=== PATIENT | female | born 1945 | race Caucasian/White ===

== ENCOUNTER 2019-08-26 08:20 | Inpatient (IN) | payer MEDICARE ==
--- NOTE | 2019-08-26 12:29 | PCM.HP.2 ---
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 She has history of atrial flutter, had ablation on 6th and developed slurred speech, left facial droop along with right arm weakness. Also had pulmonary hypertension while in [place], CT angio chest showed no evidence of PE. She had carotid angiogram but they did not do a thrombectomy. She is here for rehab therapy with PT/OT. 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 She denies any fevers, chills , cough, sore throat, shortness of breath, chest pain. No abdominal pain, nausea , vomiting, diarrhea or constipation. She urinating as normal, no dysuria, hematuria, some increase in frequency. She denies any joint pains, though left shoulder has decreased range of motion. No peripheral edema. History of Diabetes , hypothyroidism, Chronic kidney disease stage 3, DVT, Hypertension, Sleep apnea on CPAP. Had dysphagia testing by speech therapy, recommended regular texture with mildly nectar thickened liquids. - Related Data Allergies/Adverse Reactions: Allergies Allergy/AdvReac Type Severity Reaction Status Date / Time No Known Allergies Allergy Verified 10/08/13 11:06 Home Medications: Home Meds Calcium Carbonate/Vitamin D2 [Calcium with Vit D] 1 each PO BID 10/08/13 [ History] Levothyroxine Sodium 50 mcg PO DAILY@0600 10/08/13 [History] Vitamin B Complex 1 each PO DAILY 10/08/13 [History] busPIRone [Buspar] 15 mg PO BID@08,12 10/08/13 [History] metFORMIN HCl [Metformin HCl] 500 mg PO BID 10/08/13 [History] Acetaminophen [Tylenol Extra Strength] 1,000 mg PO TID 02/04/15 [History] Polyethylene Glycol 3350 [MiraLAX] 17 gm PO DAILY PRN 02/04/15 [History] Omeprazole 40 mg PO DAILY@1700 02/05/15 [History] Potassium Chloride [Klor-Con 10] 10 meq PO DAILY 02/05/15 [History] Pravastatin [Pravachol] 40 mg PO BEDTIME 02/05/15 [History] Amoxicillin 2,000 mg PO ASDIRECTED PRN 08/26/19 [History] Carboxymethylcellulose Sodium [Thera Tears] 1 drop EYEBOTH QID 08/26/19 [History ] Diclofenac Sodium [Voltaren 1% Gel] 2 gm TOP QID 08/26/19 [History] Diclofenac Sodium [Voltaren 1% Gel] 4 gm TOP QID 08/26/19 [History] Diltiazem [Dilacor XR] 180 mg PO DAILY 08/26/19 [History] Docusate Sodium 200 mg PO DAILY 08/26/19 [History] Enoxaparin [Lovenox] 90 mg SUBCUT Q12H 08/26/19 [History] Fesoterodine Fumarate [Toviaz] 8 mg PO DAILY 08/26/19 [History] Furosemide [Lasix] 20 mg PO DAILY PRN 08/26/19 [History] Lisinopril [Zestril] 40 mg PO DAILY 08/26/19 [History] Loperamide [Imodium] 2 mg PO Q12H PRN 08/26/19 [History] Magnesium Chloride [Slow-Mag] 2 tab PO DAILY 08/26/19 [History] Metoprolol Succinate [Toprol XL] 200 mg PO DAILY 08/26/19 [History] Multivitamin with Minerals [Multivitamins with Minerals] 1 tab PO DAILY [History] Vortioxetine [Trintellix] 10 mg PO BEDTIME 08/26/19 [History] Warfarin Sliding Scale [Coumadin Sliding Scale] 1 each PO ASDIRECTED 08/26/19 [ History] Warfarin [Coumadin] 5 mg PO MOFR 08/26/19 [History] Warfarin [Coumadin] 7.5 mg PO SUTUWETHSA 08/26/19 [History] cycloSPORINE [Restasis] 1 drop EYEBOTH BID 08/26/19 [History] lamoTRIgine [Lamotrigine] 50 mg PO BEDTIME 08/26/19 [History] Past Medical History Cardiovascular History: Reports: Afib, Blood Clots/VTE/DVT, High Cholesterol, Hypertension Respiratory History: Reports: Sleep Apnea (on CPAP), Other (See Below) ( pulmonary hypertension). 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 Exam - Exam Exam: See Below - Exam General: Alert, Oriented, Cooperative. No: Mild Distress HEENT: PERRLA, Conjunctiva Clear, EOMI, Hearing Intact, Mucosa Moist & [place], Nares Patent, Normal Nasal Septum, Posterior Pharynx Clear. No: TMs Clear ( blocked by cerumen) Neck: Supple, Trachea Midline. No: Lymphadenopathy Lungs: Clear to Auscultation, Normal Respiratory Effort Cardiovascular: Regular Rate, Irregular Rhythm, Systolic Murmur GI/Abdominal Exam: Normal Bowel Sounds, Soft, Non-Tender, No Distention (Female) Exam: Deferred Rectal (Female) Exam: Deferred Extremities: No Pedal Edema Peripheral Pulses: 2+: Radial (L), Radial (R), Posterior Tibial (L), Posterior Tibial (R), Dorsalis Pedis (L), Dorsalis Pedis (R) Skin: Warm, Dry, Intact Neurological: Cranial Nerves Intact, Normal Speech, Focal Deficit (right arm weakness 4/5, left arm 5/5; BLE 5/5) Psychiatric: Normal Affect, Normal Mood - Problem List (1) Status post cerebrovascular accident SNOMED Code(s): 973093546 ICD Code: Z86.73 - PRSNL HX OF TIA (TIA), AND CEREB INFRC W/O RESID DEFICITS Status: Acute Current Visit: Yes Onset Date: ~08/19/19 (2) Anticoagulant long-term use SNOMED Code(s): 458229576 ICD Code: Z79.01 - CORRECTIONS IDENTIFICATION TECHNICIAN (CURRENT) USE OF ANTICOAGULANTS Status: Chronic Current Visit: Yes (3) Atrial fibrillation SNOMED Code(s): 79475531 ICD Code: I48.91 - UNSPECIFIED ATRIAL FIBRILLATION Status: Chronic Current Visit: No (4) Depression SNOMED Code(s): 32986499 ICD Code: F32.9 - MAJOR DEPRESSIVE DISORDER, SINGLE EPISODE, UNSPECIFIED Status: Chronic Current Visit: No (5) Diabetes 1.5, managed as type 2 SNOMED Code(s): 126194394 ICD Code: E13.9 - OTHER SPECIFIED DIABETES MELLITUS WITHOUT COMPLICATIONS Status: Chronic Current Visit: No Problem List Initiated/Reviewed/Updated: Yes Orders Last 24hrs: Active Orders 24 hr Category Date Time Status Patient Status [ADT] Routine ADT 08/26/19 12:08 Ordered Height and Weight [RC] WEEKLY Care 08/26/19 12:08 Ordered Oxygen Therapy [RC] PRN Care 08/26/19 12:08 Ordered Up to Chair [RC] ASDIRECTED Care 08/26/19 12:08 Ordered VTE/DVT Education [RC] Per Unit Routine Care 08/26/19 12:08 Ordered Vital Signs [RC] PER UNIT ROUTINE Care 08/26/19 12:08 Ordered OT Evaluation and Treatment [CONS] Routine Cons 08/26/19 12:08 Ordered PT Evaluation and Treatment [CONS] Routine Cons 08/26/19 12:08 Ordered Consistent Carbohydrate Diet [DIET] Diet 08/26/19 Lunch Ordered Resuscitation Status Routine Resus Stat 08/26/19 12:08 Ordered Assessment/Plan Comment:: 1. Admit to swing bed for rehabilitation therapy with PT/OT. 2. Pharmacy to adjust Coumadin, INR per pharmacy. 3. Consistent carb diet, regular texture with mild nectar thickened liquids, accuchecks daily 4. Resume home medications. 5. CODE STATUS: DNR. - Mortality Measure Prognosis:: Good
[2019-08-26] MEDS ORDERED: Furosemide 20 MG Tab PO PRN (13:49)
[2019-08-26] MEDS ORDERED: Loperamide 2 MG Cap PO PRN (13:49)
[2019-08-26] MEDS: busPIRone 15 MG Tab PO SCH (15:45)
[2019-08-26] MEDS: Acetaminophen 500 MG Tab PO SCH ×2 (15:45→21:03)
[2019-08-26] MEDS: Warfarin 5 MG, Warfarin 2.5 MG PO SCH ×2 (17:23)
[2019-08-26] MEDS: Carboxymethylcellulose Sodium 0.5% Ophth Soln 15 ML Bottle EYEBOTH SCH ×3 (17:24→20:59)
[2019-08-26] MEDS: Pantoprazole 40 MG Tab.CR PO SCH (18:10)
[2019-08-26] MEDS: metFORMIN 500 MG Tab PO SCH (18:10)
[2019-08-26] MEDS: Enoxaparin 100 MG/1 ML Syringe SUBCUT SCH (21:00)
[2019-08-26] MEDS: lamoTRIgine 25 MG Tab PO SCH (21:02)
[2019-08-26] MEDS: Calcium Carbonate 500 MG Tablet PO SCH (21:03)
[2019-08-26] MEDS: Pravastatin 20 MG Tab PO SCH (21:03)
[2019-08-26] MEDS: cycloSPORINE Ophth Drops U/D Box of 30 EYEBOTH SCH (21:06)
[2019-08-27] MEDS: Levothyroxine 50 MCG Tab PO SCH (06:23)
[2019-08-27] MEDS: busPIRone 15 MG Tab PO SCH ×2 (08:42→12:56)
[2019-08-27] MEDS: Enoxaparin 100 MG/1 ML Syringe SUBCUT SCH ×2 (08:42→20:31)
[2019-08-27] MEDS: metFORMIN 500 MG Tab PO SCH ×2 (08:43→18:08)
[2019-08-27] MEDS: Diltiazem 180 MG Cap.CD PO SCH (08:47)
[2019-08-27] MEDS: Docusate Sodium 100 MG Cap PO SCH (08:49)
[2019-08-27] MEDS: Magnesium Chloride 64 MG Tab.ER PO SCH (08:50)
[2019-08-27] MEDS: Carboxymethylcellulose Sodium 0.5% Ophth Soln 15 ML Bottle EYEBOTH SCH ×4 (08:51→20:34)
[2019-08-27] MEDS: Calcium Carbonate 500 MG Tablet PO SCH ×2 (08:51→20:35)
[2019-08-27] MEDS: cycloSPORINE Ophth Drops U/D Box of 30 EYEBOTH SCH ×2 (08:52→20:33)
[2019-08-27] MEDS: Multivitamins with Iron/Calcium/Folic Acid/Minerals Tab PO SCH (08:52)
[2019-08-27] MEDS: Metoprolol Succinate 100 MG Tab.ER PO SCH (08:53)
[2019-08-27] MEDS: Fesoterodine Fumarate 4 MG Tab PO SCH (08:54)
[2019-08-27] MEDS: Acetaminophen 500 MG Tab PO SCH ×3 (08:54→20:35)
[2019-08-27] MEDS: Vitamin B Complex with Vitamin C Tab PO SCH (08:54)
[2019-08-27] MEDS ORDERED: Warfarin Sliding Scale PO SCH (09:00)
[2019-08-27] MEDS: Potassium Chloride 10 MEQ Tab.ER PO SCH (09:30)
[2019-08-27] MEDS: Pantoprazole 40 MG Tab.CR PO SCH (16:47)
[2019-08-27] MEDS: Warfarin 5 MG, Warfarin 2.5 MG PO SCH ×2 (16:47)
[2019-08-27] MEDS: Pravastatin 20 MG Tab PO SCH (20:34)
[2019-08-27] MEDS: lamoTRIgine 25 MG Tab PO SCH (20:35)
[2019-08-28] MEDS: Levothyroxine 50 MCG Tab PO SCH (06:01)
[2019-08-28] MEDS: metFORMIN 500 MG Tab PO SCH ×2 (08:45→18:01)
[2019-08-28] MEDS: Enoxaparin 100 MG/1 ML Syringe SUBCUT SCH ×2 (08:46→20:03)
[2019-08-28] MEDS: Fesoterodine Fumarate 4 MG Tab PO SCH (08:47)
[2019-08-28] MEDS: Diltiazem 180 MG Cap.CD PO SCH (08:47)
[2019-08-28] MEDS: Docusate Sodium 100 MG Cap PO SCH (08:48)
[2019-08-28] MEDS: busPIRone 15 MG Tab PO SCH ×2 (08:48→12:31)
[2019-08-28] MEDS: Potassium Chloride 10 MEQ Tab.ER PO SCH (08:48)
[2019-08-28] MEDS: cycloSPORINE Ophth Drops U/D Box of 30 EYEBOTH SCH ×2 (08:49→20:03)
[2019-08-28] MEDS: Carboxymethylcellulose Sodium 0.5% Ophth Soln 15 ML Bottle EYEBOTH SCH ×4 (08:49→20:03)
[2019-08-28] MEDS: Calcium Carbonate 500 MG Tablet PO SCH ×2 (08:49→20:04)
[2019-08-28] MEDS: Magnesium Chloride 64 MG Tab.ER PO SCH (08:49)
[2019-08-28] MEDS: Metoprolol Succinate 100 MG Tab.ER PO SCH (08:50)
[2019-08-28] MEDS: Multivitamins with Iron/Calcium/Folic Acid/Minerals Tab PO SCH (08:50)
[2019-08-28] MEDS: Vitamin B Complex with Vitamin C Tab PO SCH (08:51)
[2019-08-28] MEDS: Acetaminophen 500 MG Tab PO SCH ×3 (08:51→20:04)
[2019-08-28] MEDS: Polyethylene Glycol 3350 Powder 17 GM Packet PO PRN (09:09)
[2019-08-28] MEDS ORDERED: cefTRIAXone 1 GM in Sodium Chloride 0.9% 50 ML IV SCH (10:00)
[2019-08-28] MEDS: Sodium Chloride 0.9% 10 ML Syringe FLUSH PRN ×2 (10:15→10:35)
[2019-08-28] MEDS ORDERED: Warfarin 5 MG Tab PO ONE (16:00)
[2019-08-28] MEDS: Pantoprazole 40 MG Tab.CR PO SCH (18:01)
[2019-08-28] MEDS: lamoTRIgine 25 MG Tab PO SCH (20:04)
[2019-08-28] MEDS: Pravastatin 20 MG Tab PO SCH (20:04)
[2019-08-29] MEDS: Levothyroxine 50 MCG Tab PO SCH (06:15)
--- NOTE | 2019-08-29 08:50 | PCM.PN ---
- General Info Date of Service: 08/29/19 Subjective Update: Mady is doing well this morning, dressed, and sitting in the chair, using her right hand to butter her czech toast. States she is feeling better. Found to have UTI yesterday, positive nitrites and packed WBC, UC grew GNR. NO fevers, chills, chest pain, shortness of breath. No vomiting. States she hasn't had a bowel movement yet but at home has then every 3 days. - Patient Data Vitals - Most Recent: Last Vital Signs Temp 98.0 F 08/28/19 08:00 Pulse 71 08/28/19 08:50 Resp 18 08/28/19 08:00 BP 131/79 08/28/19 16:00 Pulse Ox 96 08/28/19 08:00 Weight - Most Recent: 203 lb I&O - Last 24 Hours: Intake & Output 08/28/19 08/29/19 08/29/19 22:59 06:59 14:59 Intake Total 100 Output Total 0 Balance 100 Lab Results Last 24 Hours: Laboratory Results - last 24 hr 08/28/19 08/29/19 08/29/19 Range/Units 09: 05:50 06:13 PT 15.7 H (9.0-11.1) sec INR 1.68 H (1.00-1.24) POC Glucose 98 (80-116) mg/dL Urine Color Yellow (YELLOW) Urine Appearance Cloudy (CLEAR) Urine pH 7.0 H (5.0-6.5) Ur Specific [place] 1.005 L (1.010-1.025) Urine Protein Negative (NEGATIVE) mg/dL Urine Glucose (UA) Normal (NORMAL) mg/dL Urine Ketones Negative (NEGATIVE) mg/dL Urine Occult Blood Negative (NEGATIVE) Urine Nitrite Positive H (NEGATIVE) Urine Bilirubin Negative (NEGATIVE) Urine Urobilinogen Normal (NEGATIVE) mg/dL Ur Leukocyte Esterase Large H (NEGATIVE) Urine WBC Packed H (0-5) [place] Results Last 24 Hours: Microbiology 08/28/19 09:19 Urine Culture - Preliminary Urine, Clean Catch Gram Negative Rods Med Orders - Current: Current Medications Acetaminophen (Tylenol Extra Strength) 1,000 mg PO TID MENDOZA Last Admin: 08/28/19 20:04 Dose: 1,000 mg Artificial Tears (Refresh Tears 0.5%) 0 ml EYEBOTH QID [facility] Last Admin: 08/28/19 20:03 Dose: 1 drop Buspirone HCl (Buspar) 15 mg PO BID@08,12 [facility] Last Admin: 08/28/19 12:31 Dose: 15 mg Calcium Carbonate/Glycine (Oyster Shell Calcium) 500 mg PO BID [facility] Last Admin: 08/28/19 20:04 Dose: 500 mg Cyclosporine (Restasis) 0 each EYEBOTH BID [facility] Last Admin: 08/28/19 20:03 Dose: 1 drop Diltiazem HCl (Cardizem Cd) 180 mg PO DAILY [facility] Last Admin: 08/28/19 08:47 Dose: 180 mg Docusate Sodium (Colace) 200 mg PO DAILY [facility] Last Admin: 08/28/19 08:48 Dose: 200 mg Enoxaparin Sodium (Lovenox) 90 mg SUBCUT Q12H [facility] Last Admin: 08/28/19 20:03 Dose: 90 mg Fesoterodine Fumarate (Toviaz) 8 mg PO DAILY [facility] Last Admin: 08/28/19 08:47 Dose: 8 mg Furosemide (Lasix) 20 mg PO DAILY PRN PRN Reason: Edema Ceftriaxone Sodium 1 gm/ (Sodium Chloride) 50 mls @ 200 mls/hr IV Q24H [facility] Last Admin: 08/28/19 10:18 Dose: 200 mls/hr Lamotrigine (Lamotrigine) 50 mg PO BEDTIME [facility] Last Admin: 08/28/19 20:04 Dose: 50 mg Levothyroxine Sodium (Synthroid) 50 mcg PO DAILY@0600 [facility] Last Admin: 08/29/19 06:15 Dose: 50 mcg Lisinopril (Prinivil) 40 mg PO DAILY [facility] Last Admin: 08/28/19 08:49 Dose: 40 mg Loperamide HCl (Imodium) 2 mg PO Q12H PRN PRN Reason: Diarrhea Magnesium Chloride (Mag-64) 128 mg PO DAILY [facility] Last Admin: 08/28/19 08:49 Dose: 128 mg Metformin HCl (Glucophage) 500 mg PO BIDMEALS [facility] Last Admin: 08/28/19 18:01 Dose: 500 mg Metoprolol Succinate (Toprol Xl) 200 mg PO DAILY [facility] Last Admin: 08/28/19 08:50 Dose: 200 mg Multivitamins (Total B With C) 1 each PO DAILY [facility] Last Admin: 08/28/19 08:51 Dose: 1 each Multivitamins/Minerals (Thera M Plus) 1 tab PO DAILY [facility] Last Admin: 08/28/19 08:50 Dose: 1 tab (Vortioxetine [ Trintellix] 10 Mg) * Ptom 10 mg PO BEDTIME [facility] Last Admin: 08/28/19 20:05 Dose: 10 mg Pantoprazole Sodium (Protonix) 40 mg PO DAILY@1700 [facility] Last Admin: 08/28/19 18:01 Dose: 40 mg Polyethylene Glycol (Miralax) 17 gm PO DAILY PRN PRN Reason: Constipation Last Admin: 08/28/19 09:09 Dose: 17 gm Potassium Chloride (Klor-Con 10) 10 meq PO DAILY [facility] Last Admin: 08/28/19 08:48 Dose: 10 meq Pravastatin Sodium (Pravachol) 40 mg PO BEDTIME [facility] Last Admin: 08/28/19 20:04 Dose: 40 mg Sodium Chloride (Saline Flush) 10 ml FLUSH ASDIRECTED PRN PRN Reason: Keep Vein Open Last Admin: 08/28/19 10:35 Dose: 10 ml Warfarin Sodium (Coumadin Sliding Scale) 0 each PO DAILY [facility] Discontinued Medications Warfarin Sodium 5 mg/ Warfarin (Sodium 2.5 mg) 7.5 mg PO DAILY@1600 [facility] Last Admin: 08/27/19 16:47 Dose: 7.5 mg Warfarin Sodium (Coumadin) 10 mg PO ONETIME ONE Stop: 08/28/19 16:01 Last Admin: 08/28/19 16:05 Dose: 10 mg - Exam General: Alert, Oriented, Cooperative, No Acute Distress Lungs: Clear to Auscultation, Normal Respiratory Effort Cardiovascular: Regular Rate, Regular Rhythm GI/Abdominal Exam: Normal Bowel Sounds, Soft, Non-Tender, No Distention Extremities: No Pedal Edema Peripheral Pulses: 2+: Radial (L), Radial (R) Skin: Warm, Dry, Intact Sepsis Event Note - Evaluation Sepsis Screening Result: No Definite Risk - Problem List & Annotations (1) Status post cerebrovascular accident SNOMED Code(s): 800798207 Code(s): Z86.73 - PRSNL HX OF TIA (TIA), AND CEREB INFRC W/O RESID DEFICITS Status: Acute Current Visit: Yes Onset Date: ~08/19/19 (2) UTI (urinary tract infection) SNOMED Code(s): 58849841 Code(s): N39.0 - URINARY TRACT INFECTION, SITE NOT SPECIFIED Status: Acute Current Visit: Yes (3) Anticoagulant long-term use SNOMED Code(s): 276945157 Code(s): Z79.01 - INTERMEDIATE (CURRENT) USE OF ANTICOAGULANTS Status: Chronic Current Visit: Yes (4) Atrial fibrillation SNOMED Code(s): 39459522 Code(s): I48.91 - UNSPECIFIED ATRIAL FIBRILLATION Status: Chronic Current Visit: No (5) Depression SNOMED Code(s): 57772231 Code(s): F32.9 - MAJOR DEPRESSIVE DISORDER, SINGLE EPISODE, UNSPECIFIED Status: Chronic Current Visit: No (6) Diabetes 1.5, managed as type 2 SNOMED Code(s): 292394397 Code(s): E13.9 - OTHER SPECIFIED DIABETES MELLITUS WITHOUT COMPLICATIONS Status: Chronic Current Visit: No - Problem List Review Problem List Initiated/Reviewed/Updated: Yes - My Orders Last 24 Hours: My Active Orders 08/28/19 09:19 CULTURE URINE [RM] Routine 08/28/19 09:44 Sodium Chloride 0.9% [Saline Flush] 10 ml FLUSH ASDIRECTED PRN Saline Lock Insert [OM.PC] Routine 08/28/19 10:00 cefTRIAXone [Rocephin] 1 gm Sodium Chloride 0.9% [Normal Saline] 50 ml IV Q24H 08/30/19 14:35 INR,PT,PROTHROMBIN TIME [COAG] DAILY 08/31/19 14:35 INR,PT,PROTHROMBIN TIME [COAG] DAILY - Plan Plan:: 1. s/p L MCA stroke-rehabilitation therapy with PT/OT. 2. Pharmacy to adjust Coumadin, INR per pharmacy. 3. UTI, day 2 Rocephin, UC grew GNR, ID pending. 4. Consistent carb diet, regular texture with mild nectar thickened liquids, accuchecks daily 5. CODE STATUS: DNR.
[2019-08-29] MEDS: busPIRone 15 MG Tab PO SCH ×2 (09:10→14:26)
[2019-08-29] MEDS: metFORMIN 500 MG Tab PO SCH ×2 (09:10→17:52)
[2019-08-29] MEDS: Enoxaparin 100 MG/1 ML Syringe SUBCUT SCH ×2 (09:10→20:47)
[2019-08-29] MEDS: Diltiazem 180 MG Cap.CD PO SCH (09:14)
[2019-08-29] MEDS: Calcium Carbonate 500 MG Tablet PO SCH ×2 (09:14→20:55)
[2019-08-29] MEDS: Magnesium Chloride 64 MG Tab.ER PO SCH (09:14)
[2019-08-29] MEDS: Carboxymethylcellulose Sodium 0.5% Ophth Soln 15 ML Bottle EYEBOTH SCH ×4 (09:14→20:49)
[2019-08-29] MEDS: Potassium Chloride 10 MEQ Tab.ER PO SCH (09:14)
[2019-08-29] MEDS: Docusate Sodium 100 MG Cap PO SCH (09:14)
[2019-08-29] MEDS: Acetaminophen 500 MG Tab PO SCH ×3 (09:15→20:51)
[2019-08-29] MEDS: Multivitamins with Iron/Calcium/Folic Acid/Minerals Tab PO SCH (09:15)
[2019-08-29] MEDS: cycloSPORINE Ophth Drops U/D Box of 30 EYEBOTH SCH ×2 (09:15→20:54)
[2019-08-29] MEDS: Vitamin B Complex with Vitamin C Tab PO SCH (09:15)
[2019-08-29] MEDS: Fesoterodine Fumarate 4 MG Tab PO SCH (09:15)
[2019-08-29] MEDS: Metoprolol Succinate 100 MG Tab.ER PO SCH (09:15)
[2019-08-29] MEDS: cefTRIAXone 1 GM Vial IVPUSH SCH (10:42)
[2019-08-29] MEDS ORDERED: Warfarin 5 MG Tab PO ONE (16:00)
[2019-08-29] MEDS ORDERED: Magnesium Hydroxide 400 MG/5 ML Susp 30 ML Cup PO PRN (17:02)
[2019-08-29] MEDS: Pantoprazole 40 MG Tab.CR PO SCH (17:52)
[2019-08-29] MEDS: lamoTRIgine 25 MG Tab PO SCH (20:50)
[2019-08-29] MEDS: Pravastatin 20 MG Tab PO SCH (20:53)
[2019-08-30] MEDS: Levothyroxine 50 MCG Tab PO SCH (06:06)
[2019-08-30] MEDS: busPIRone 15 MG Tab PO SCH ×2 (08:42→13:30)
[2019-08-30] MEDS: metFORMIN 500 MG Tab PO SCH ×2 (08:43→18:46)
[2019-08-30] MEDS: Docusate Sodium 100 MG Cap PO SCH (08:43)
[2019-08-30] MEDS: Diltiazem 180 MG Cap.CD PO SCH (08:43)
[2019-08-30] MEDS: Enoxaparin 100 MG/1 ML Syringe SUBCUT SCH ×2 (08:43→20:50)
[2019-08-30] MEDS: Magnesium Chloride 64 MG Tab.ER PO SCH (08:44)
[2019-08-30] MEDS: Carboxymethylcellulose Sodium 0.5% Ophth Soln 15 ML Bottle EYEBOTH SCH ×4 (08:44→20:51)
[2019-08-30] MEDS: cycloSPORINE Ophth Drops U/D Box of 30 EYEBOTH SCH ×2 (08:44→20:51)
[2019-08-30] MEDS: Potassium Chloride 10 MEQ Tab.ER PO SCH (08:44)
[2019-08-30] MEDS: Calcium Carbonate 500 MG Tablet PO SCH ×2 (08:44→21:00)
[2019-08-30] MEDS: Fesoterodine Fumarate 4 MG Tab PO SCH (08:45)
[2019-08-30] MEDS: Acetaminophen 500 MG Tab PO SCH ×3 (08:45→21:00)
[2019-08-30] MEDS: Vitamin B Complex with Vitamin C Tab PO SCH (08:45)
[2019-08-30] MEDS: Multivitamins with Iron/Calcium/Folic Acid/Minerals Tab PO SCH (08:45)
[2019-08-30] MEDS: Metoprolol Succinate 100 MG Tab.ER PO SCH (08:45)
[2019-08-30] MEDS: cefTRIAXone 1 GM Vial IVPUSH SCH (11:45)
[2019-08-30] MEDS: Warfarin 5 MG, Warfarin 2.5 MG PO SCH ×2 (15:59)
[2019-08-30] MEDS: Pantoprazole 40 MG Tab.CR PO SCH (16:00)
[2019-08-30] MEDS: lamoTRIgine 25 MG Tab PO SCH (21:00)
[2019-08-30] MEDS: Pravastatin 20 MG Tab PO SCH (21:00)
[2019-08-31] MEDS: Levothyroxine 50 MCG Tab PO SCH (06:01)
[2019-08-31] MEDS: busPIRone 15 MG Tab PO SCH ×2 (08:37→11:28)
[2019-08-31] MEDS: metFORMIN 500 MG Tab PO SCH ×2 (08:37→16:59)
[2019-08-31] MEDS: Docusate Sodium 100 MG Cap PO SCH (08:38)
[2019-08-31] MEDS: Diltiazem 180 MG Cap.CD PO SCH (08:38)
[2019-08-31] MEDS: Potassium Chloride 10 MEQ Tab.ER PO SCH (08:39)
[2019-08-31] MEDS: Magnesium Chloride 64 MG Tab.ER PO SCH (08:39)
[2019-08-31] MEDS: Calcium Carbonate 500 MG Tablet PO SCH ×2 (08:40→20:59)
[2019-08-31] MEDS: cycloSPORINE Ophth Drops U/D Box of 30 EYEBOTH SCH ×2 (08:40→21:00)
[2019-08-31] MEDS: Carboxymethylcellulose Sodium 0.5% Ophth Soln 15 ML Bottle EYEBOTH SCH ×4 (08:41→21:00)
[2019-08-31] MEDS: Multivitamins with Iron/Calcium/Folic Acid/Minerals Tab PO SCH (08:42)
[2019-08-31] MEDS: Metoprolol Succinate 100 MG Tab.ER PO SCH (08:42)
[2019-08-31] MEDS: Acetaminophen 500 MG Tab PO SCH ×3 (08:43→21:00)
[2019-08-31] MEDS: Vitamin B Complex with Vitamin C Tab PO SCH (08:43)
[2019-08-31] MEDS: Fesoterodine Fumarate 4 MG Tab PO SCH (08:43)
[2019-08-31] MEDS: Warfarin 5 MG, Warfarin 2.5 MG PO SCH ×2 (16:57)
[2019-08-31] MEDS: Pantoprazole 40 MG Tab.CR PO SCH (16:58)
[2019-08-31] MEDS: lamoTRIgine 25 MG Tab PO SCH (20:59)
[2019-08-31] MEDS: Pravastatin 20 MG Tab PO SCH (21:00)
[2019-09-01] MEDS: Levothyroxine 50 MCG Tab PO SCH (06:09)
[2019-09-01] MEDS: Carboxymethylcellulose Sodium 0.5% Ophth Soln 15 ML Bottle EYEBOTH SCH ×4 (08:19→21:11)
[2019-09-01] MEDS: busPIRone 15 MG Tab PO SCH ×2 (08:20→12:56)
[2019-09-01] MEDS: Diltiazem 180 MG Cap.CD PO SCH (08:21)
[2019-09-01] MEDS: metFORMIN 500 MG Tab PO SCH ×2 (08:21→19:13)
[2019-09-01] MEDS: Potassium Chloride 10 MEQ Tab.ER PO SCH (08:21)
[2019-09-01] MEDS: Docusate Sodium 100 MG Cap PO SCH (08:21)
[2019-09-01] MEDS: Magnesium Chloride 64 MG Tab.ER PO SCH (08:22)
[2019-09-01] MEDS: Calcium Carbonate 500 MG Tablet PO SCH ×2 (08:22→21:10)
[2019-09-01] MEDS: cycloSPORINE Ophth Drops U/D Box of 30 EYEBOTH SCH ×2 (08:24→21:11)
[2019-09-01] MEDS: Metoprolol Succinate 100 MG Tab.ER PO SCH (08:25)
[2019-09-01] MEDS: Multivitamins with Iron/Calcium/Folic Acid/Minerals Tab PO SCH (08:25)
[2019-09-01] MEDS: Fesoterodine Fumarate 4 MG Tab PO SCH (08:26)
[2019-09-01] MEDS: Vitamin B Complex with Vitamin C Tab PO SCH (08:26)
[2019-09-01] MEDS: Acetaminophen 500 MG Tab PO SCH ×3 (08:27→21:12)
[2019-09-01] MEDS: Warfarin 5 MG, Warfarin 2.5 MG PO SCH ×2 (15:44)
[2019-09-01] MEDS: Pantoprazole 40 MG Tab.CR PO SCH (19:13)
[2019-09-01] MEDS: lamoTRIgine 25 MG Tab PO SCH (21:10)
[2019-09-01] MEDS: Pravastatin 20 MG Tab PO SCH (21:11)
[2019-09-02] MEDS: Levothyroxine 50 MCG Tab PO SCH (06:20)
[2019-09-02] MEDS ORDERED: Warfarin 5 MG Tab PO ONE (08:00)
[2019-09-02] MEDS: Fesoterodine Fumarate 4 MG Tab PO SCH (08:16)
[2019-09-02] MEDS: Vitamin B Complex with Vitamin C Tab PO SCH (08:16)
[2019-09-02] MEDS: Calcium Carbonate 500 MG Tablet PO SCH ×2 (08:17→20:17)
[2019-09-02] MEDS: Multivitamins with Iron/Calcium/Folic Acid/Minerals Tab PO SCH (08:17)
[2019-09-02] MEDS: Docusate Sodium 100 MG Cap PO SCH (08:17)
[2019-09-02] MEDS: Magnesium Chloride 64 MG Tab.ER PO SCH (08:17)
[2019-09-02] MEDS: Metoprolol Succinate 100 MG Tab.ER PO SCH (08:17)
[2019-09-02] MEDS: metFORMIN 500 MG Tab PO SCH ×2 (08:17→18:52)
[2019-09-02] MEDS: Potassium Chloride 10 MEQ Tab.ER PO SCH (08:17)
[2019-09-02] MEDS: busPIRone 15 MG Tab PO SCH ×2 (08:17→12:45)
[2019-09-02] MEDS: Acetaminophen 500 MG Tab PO SCH ×3 (08:18→20:18)
[2019-09-02] MEDS: Carboxymethylcellulose Sodium 0.5% Ophth Soln 15 ML Bottle EYEBOTH SCH ×4 (08:18→20:18)
[2019-09-02] MEDS: cycloSPORINE Ophth Drops U/D Box of 30 EYEBOTH SCH ×2 (08:18→20:20)
[2019-09-02] MEDS: Diltiazem 180 MG Cap.CD PO SCH (08:18)
[2019-09-02] MEDS: Enoxaparin 100 MG/1 ML Syringe SUBCUT SCH ×2 (09:24→20:16)
[2019-09-02] MEDS: Warfarin 5 MG Tab PO SCH (16:06)
[2019-09-02] MEDS: Pantoprazole 40 MG Tab.CR PO SCH (16:09)
[2019-09-02] MEDS: lamoTRIgine 25 MG Tab PO SCH (20:17)
[2019-09-02] MEDS: Pravastatin 20 MG Tab PO SCH (20:17)
[2019-09-02] MEDS: Polyethylene Glycol 3350 Powder 17 GM Packet PO PRN (20:22)
[2019-09-03] MEDS: Levothyroxine 50 MCG Tab PO SCH (05:35)
[2019-09-03] MEDS: Metoprolol Succinate 100 MG Tab.ER PO SCH (08:38)
[2019-09-03] MEDS: Potassium Chloride 10 MEQ Tab.ER PO SCH (08:38)
[2019-09-03] MEDS: Diltiazem 180 MG Cap.CD PO SCH (08:38)
[2019-09-03] MEDS: Vitamin B Complex with Vitamin C Tab PO SCH (08:38)
[2019-09-03] MEDS: Fesoterodine Fumarate 4 MG Tab PO SCH (08:39)
[2019-09-03] MEDS: Acetaminophen 500 MG Tab PO SCH ×3 (08:39→20:27)
[2019-09-03] MEDS: Docusate Sodium 100 MG Cap PO SCH (08:39)
[2019-09-03] MEDS: cycloSPORINE Ophth Drops U/D Box of 30 EYEBOTH SCH ×2 (08:40→20:24)
[2019-09-03] MEDS: busPIRone 15 MG Tab PO SCH ×2 (08:40→13:35)
[2019-09-03] MEDS: Multivitamins with Iron/Calcium/Folic Acid/Minerals Tab PO SCH (08:40)
[2019-09-03] MEDS: metFORMIN 500 MG Tab PO SCH ×2 (08:40→18:17)
[2019-09-03] MEDS: Magnesium Chloride 64 MG Tab.ER PO SCH (08:40)
[2019-09-03] MEDS: Calcium Carbonate 500 MG Tablet PO SCH ×2 (08:40→20:26)
[2019-09-03] MEDS: Enoxaparin 100 MG/1 ML Syringe SUBCUT SCH ×2 (08:41→20:25)
[2019-09-03] MEDS: Carboxymethylcellulose Sodium 0.5% Ophth Soln 15 ML Bottle EYEBOTH SCH ×4 (08:43→20:25)
[2019-09-03] MEDS: Warfarin 5 MG Tab PO SCH (16:56)
[2019-09-03] MEDS: Pantoprazole 40 MG Tab.CR PO SCH (16:57)
[2019-09-03] MEDS: Pravastatin 20 MG Tab PO SCH (20:26)
[2019-09-03] MEDS: lamoTRIgine 25 MG Tab PO SCH (20:26)
[2019-09-04] MEDS: Levothyroxine 50 MCG Tab PO SCH (06:15)
[2019-09-04] MEDS: Fesoterodine Fumarate 4 MG Tab PO SCH (08:30)
[2019-09-04] MEDS: Acetaminophen 500 MG Tab PO SCH ×3 (08:30→20:26)
[2019-09-04] MEDS: Multivitamins with Iron/Calcium/Folic Acid/Minerals Tab PO SCH (08:31)
[2019-09-04] MEDS: Docusate Sodium 100 MG Cap PO SCH (08:31)
[2019-09-04] MEDS: Carboxymethylcellulose Sodium 0.5% Ophth Soln 15 ML Bottle EYEBOTH SCH ×4 (08:31→20:25)
[2019-09-04] MEDS: Magnesium Chloride 64 MG Tab.ER PO SCH (08:31)
[2019-09-04] MEDS: cycloSPORINE Ophth Drops U/D Box of 30 EYEBOTH SCH ×2 (08:31→20:25)
[2019-09-04] MEDS: busPIRone 15 MG Tab PO SCH ×2 (08:32→12:37)
[2019-09-04] MEDS: Vitamin B Complex with Vitamin C Tab PO SCH (08:32)
[2019-09-04] MEDS: metFORMIN 500 MG Tab PO SCH ×2 (08:32→17:14)
[2019-09-04] MEDS: Potassium Chloride 10 MEQ Tab.ER PO SCH (08:33)
[2019-09-04] MEDS: Enoxaparin 100 MG/1 ML Syringe SUBCUT SCH (08:34)
[2019-09-04] MEDS: Calcium Carbonate 500 MG Tablet PO SCH ×2 (08:34→20:24)
[2019-09-04] MEDS: Metoprolol Succinate 100 MG Tab.ER PO SCH (08:39)
[2019-09-04] MEDS: Diltiazem 180 MG Cap.CD PO SCH (08:40)
[2019-09-04] MEDS: Warfarin 5 MG Tab PO SCH (15:45)
[2019-09-04] MEDS: Pantoprazole 40 MG Tab.CR PO SCH (17:14)
[2019-09-04] MEDS: lamoTRIgine 25 MG Tab PO SCH (20:24)
[2019-09-04] MEDS: Pravastatin 20 MG Tab PO SCH (20:25)
[2019-09-05] MEDS: Levothyroxine 50 MCG Tab PO SCH (06:04)
[2019-09-05] MEDS: busPIRone 15 MG Tab PO SCH ×2 (07:58→12:06)
[2019-09-05] MEDS: metFORMIN 500 MG Tab PO SCH ×2 (07:58→17:01)
[2019-09-05] MEDS: Fesoterodine Fumarate 4 MG Tab PO SCH (07:59)
[2019-09-05] MEDS: Docusate Sodium 100 MG Cap PO SCH (07:59)
[2019-09-05] MEDS: Diltiazem 180 MG Cap.CD PO SCH (07:59)
[2019-09-05] MEDS: Acetaminophen 500 MG Tab PO SCH ×3 (07:59→20:24)
[2019-09-05] MEDS: Multivitamins with Iron/Calcium/Folic Acid/Minerals Tab PO SCH (07:59)
[2019-09-05] MEDS: Calcium Carbonate 500 MG Tablet PO SCH ×2 (07:59→20:25)
[2019-09-05] MEDS: Magnesium Chloride 64 MG Tab.ER PO SCH (07:59)
[2019-09-05] MEDS: cycloSPORINE Ophth Drops U/D Box of 30 EYEBOTH SCH ×2 (07:59→20:24)
[2019-09-05] MEDS: Metoprolol Succinate 100 MG Tab.ER PO SCH (07:59)
[2019-09-05] MEDS: Potassium Chloride 10 MEQ Tab.ER PO SCH (07:59)
[2019-09-05] MEDS: Carboxymethylcellulose Sodium 0.5% Ophth Soln 15 ML Bottle EYEBOTH SCH ×4 (07:59→20:24)
[2019-09-05] MEDS: Vitamin B Complex with Vitamin C Tab PO SCH (07:59)
[2019-09-05] MEDS ORDERED: Warfarin 5 MG, Warfarin 2.5 MG PO SCH ×2 (16:00)
[2019-09-05] MEDS: Pantoprazole 40 MG Tab.CR PO SCH (17:01)
[2019-09-05] MEDS: lamoTRIgine 25 MG Tab PO SCH (20:25)
[2019-09-05] MEDS: Pravastatin 20 MG Tab PO SCH (20:25)
[2019-09-06] MEDS: Levothyroxine 50 MCG Tab PO SCH (05:35)
[2019-09-06] MEDS: metFORMIN 500 MG Tab PO SCH ×2 (08:24→18:42)
[2019-09-06] MEDS: busPIRone 15 MG Tab PO SCH ×2 (08:25→12:07)
[2019-09-06] MEDS: Docusate Sodium 100 MG Cap PO SCH (10:14)
[2019-09-06] MEDS: Acetaminophen 500 MG Tab PO SCH ×3 (10:14→20:20)
[2019-09-06] MEDS: Calcium Carbonate 500 MG Tablet PO SCH ×2 (10:15→20:20)
[2019-09-06] MEDS: Vitamin B Complex with Vitamin C Tab PO SCH (10:15)
[2019-09-06] MEDS: Potassium Chloride 10 MEQ Tab.ER PO SCH (10:15)
[2019-09-06] MEDS: Multivitamins with Iron/Calcium/Folic Acid/Minerals Tab PO SCH (10:15)
[2019-09-06] MEDS: cycloSPORINE Ophth Drops U/D Box of 30 EYEBOTH SCH ×3 (10:16→20:20)
[2019-09-06] MEDS: Magnesium Chloride 64 MG Tab.ER PO SCH (10:16)
[2019-09-06] MEDS: Fesoterodine Fumarate 4 MG Tab PO SCH (10:16)
[2019-09-06] MEDS: Diltiazem 180 MG Cap.CD PO SCH (10:18)
[2019-09-06] MEDS: Metoprolol Succinate 100 MG Tab.ER PO SCH (10:19)
[2019-09-06] MEDS: Carboxymethylcellulose Sodium 0.5% Ophth Soln 15 ML Bottle EYEBOTH SCH ×4 (10:20→20:20)
[2019-09-06] MEDS ORDERED: Warfarin 5 MG Tab PO SCH (16:00)
[2019-09-06] MEDS: Pantoprazole 40 MG Tab.CR PO SCH (16:39)
[2019-09-06] MEDS: Pravastatin 20 MG Tab PO SCH (20:20)
[2019-09-06] MEDS: lamoTRIgine 25 MG Tab PO SCH (20:20)
[2019-09-07] MEDS ORDERED: Bisacodyl 10 MG Supp RECTAL PRN (03:28)
[2019-09-07] MEDS: Levothyroxine 50 MCG Tab PO SCH (05:51)
[2019-09-07] MEDS: metFORMIN 500 MG Tab PO SCH (08:31)
[2019-09-07] MEDS: busPIRone 15 MG Tab PO SCH ×2 (08:31→12:10)
[2019-09-07] MEDS: Magnesium Chloride 64 MG Tab.ER PO SCH (08:33)
[2019-09-07] MEDS: Potassium Chloride 10 MEQ Tab.ER PO SCH (08:33)
[2019-09-07] MEDS: Diltiazem 180 MG Cap.CD PO SCH (08:33)
[2019-09-07] MEDS: Docusate Sodium 100 MG Cap PO SCH (08:33)
[2019-09-07] MEDS: cycloSPORINE Ophth Drops U/D Box of 30 EYEBOTH SCH (08:34)
[2019-09-07] MEDS: Calcium Carbonate 500 MG Tablet PO SCH (08:34)
[2019-09-07] MEDS: Carboxymethylcellulose Sodium 0.5% Ophth Soln 15 ML Bottle EYEBOTH SCH ×2 (08:34→12:13)
[2019-09-07] MEDS: Fesoterodine Fumarate 4 MG Tab PO SCH (08:35)
[2019-09-07] MEDS: Multivitamins with Iron/Calcium/Folic Acid/Minerals Tab PO SCH (08:35)
[2019-09-07] MEDS: Metoprolol Succinate 100 MG Tab.ER PO SCH (08:35)
[2019-09-07] MEDS: Vitamin B Complex with Vitamin C Tab PO SCH (08:35)
[2019-09-07] MEDS: Acetaminophen 500 MG Tab PO SCH (08:36)
[2019-09-07 08:37] VITALS: BP 154/88; PULSE 60
--- NOTE | 2019-09-07 08:59 | DISCH ---
DISCHARGE DATE: 09/07/2019 REASON FOR ADMISSION: 1. Status post cerebrovascular accident. 2. Hypertension. 3. Type 2 diabetes. 4. Depression. 5. Long-term anticoagulation. 6. Constipation. 7. Hypothyroidism. DISCHARGE DIAGNOSES: 1. Status post cerebrovascular accident. 2. Hypertension. 3. Type 2 diabetes. 4. Depression. 5. Long-term anticoagulation. 6. Constipation. 7. Hypothyroidism. BRIEF HISTORY AND HOSPITAL COURSE: This is a 73-year-old female who came in because of rehab. She had a stroke early in the month and was admitted for physical strengthening. She has atrial flutter/atrial fibrillation. Physical and Occupational Therapy were involved during the hospital stay. She improved INR with therapeutic. She was discharged to [facility] for continued physical and occupational therapy. Check INR in 1 week and see the [facility] for medication list with not much changes made at the hospital stay. I spent more than 35 minutes in the discharge of the patient. /[id number] ANA/EMILY
[2019-09-07] MEDS ORDERED: Warfarin 5 MG Tab PO ONE (13:00)
== END 2019-09-07 13:00 | disposition home health service (06) | DRG 57 ==
LOC: FB.MS 11:40
PROVIDERS: ADMIT Family Medicine; ATTEND Family Medicine
DX: I69.351 Hemiplegia and hemiparesis following cerebral infarction affecting right dominant side (principal); N39.0 Urinary tract infection, site not specified; I69.392 Facial weakness following cerebral infarction; I69.328 Other speech and language deficits following cerebral infarction; Z66 Do not resuscitate; I69.391 Dysphagia following cerebral infarction; R13.10 Dysphagia, unspecified; F32.9 Major depressive disorder, single episode, unspecified; K59.00 Constipation, unspecified; E03.9 Hypothyroidism, unspecified; I12.9 Hypertensive chronic kidney disease with stage 1 through stage 4 chronic kidney disease, or unspecified chronic kidney disease; N18.3 Chronic kidney disease, stage 3 (moderate); I48.91 Unspecified atrial fibrillation; E78.00 Pure hypercholesterolemia, unspecified; E11.22 Type 2 diabetes mellitus with diabetic chronic kidney disease; M51.36 Other intervertebral disc degeneration, lumbar region; M50.10 Cervical disc disorder with radiculopathy, unspecified cervical region; E11.42 Type 2 diabetes mellitus with diabetic polyneuropathy; E66.9 Obesity, unspecified; D64.9 Anemia, unspecified; Z68.33 Body mass index [BMI] 33.0-33.9, adult; Z86.718 Personal history of other venous thrombosis and embolism; Z99.81 Dependence on supplemental oxygen; Z79.01 Long term (current) use of anticoagulants; Z79.890 Hormone replacement therapy; Z79.84 Long term (current) use of oral hypoglycemic drugs; Z79.899 Other long term (current) drug therapy
CPT/HCPCS: 36415; 81001; 82962; 85610; 87086; 87088; 87186; 92610-GN; 96125-GN; 97110-GP; 97116-GP; 97161-GP; 97165-GO; 97530-GO; 97535-GO; A9270-GY; J0696; J1650; J7050

== ENCOUNTER 2020-12-21 19:52 | Emergency (ER) | payer MEDICARE ==
[2020-12-21 20:07] VITALS: BP 164/59; PULSE 62
--- NOTE | 2020-12-21 20:38 | EDM.PDOC ---
ED HPI GENERAL MEDICAL PROBLEM - General Chief Complaint: Skin Complaint Stated Complaint: POSSIBLE INFECTION DUE TO SUNBURN Time Seen by Provider: 12/21/20 20:19 Source of Information: Reports: Patient History Limitations: Reports: No Limitations - History of Present Illness INITIAL COMMENTS - FREE TEXT/NARRATIVE: 75-year-old female who presents to the emergency department via taxi cab from [facility] with complaints of a sore on her right medial thigh for the past 1-1/2 months. According to the patient, the area has seemed to have gotten worse and the nurse at [facility] who change the patient's dressing today and that she see her primary doctor next week. She was concerned about the area and noted that the area was more painful with the pain being an 8/10 and sharp and stinging after it was cleaned by the Nurse at [facility] and she wanted to come to the emergency department for evaluation. The patient denies any fever. She has been eating and drinking normally. There has been no nausea or vomiting. There has been no trauma to the area. She states that she also has some sores on her left thigh as well but this seems to be getting better. There are no other associated signs or symptoms. There are no other modifying factors. Onset: Other (1-1/2 months.) Duration: Getting Worse (Patient feels that it is getting worse.) Location: Reports: Lower Extremity, Right (Right medial thigh.) Quality: Reports: Sharp Severity: Moderate Improves with: Reports: Rest Worsens with: Reports: Other (Palpation. 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 (see below) (Nothing.) Right Upper Thigh Pain Score (Numeric/FACES): 2 - Related Data Allergies Allergy/AdvReac Type Severity Reaction Status Date / Time No Known Allergies Allergy Verified 10/08/13 11:06 Home Meds: Home Meds Calcium Carbonate/Vitamin D2 [Calcium with Vit D] 1 each PO BID 10/08/13 [History] Levothyroxine Sodium 50 mcg PO DAILY@0600 10/08/13 [History] Vitamin B Complex 1 each PO DAILY 10/08/13 [History] busPIRone [Buspar] 15 mg PO BID@08,12 10/08/13 [History] metFORMIN HCl [Metformin HCl] 500 mg PO BID 10/08/13 [History] Acetaminophen [Tylenol Extra Strength] 1,000 mg PO TID 02/04/15 [History] Polyethylene Glycol 3350 [MiraLAX] 17 gm PO DAILY PRN 02/04/15 [History] Omeprazole 40 mg PO DAILY@1700 02/05/15 [History] Potassium Chloride [Klor-Con 10] 10 meq PO DAILY 02/05/15 [History] Pravastatin [Pravachol] 40 mg PO BEDTIME 02/05/15 [History] Amoxicillin 2,000 mg PO ASDIRECTED PRN 08/26/19 [History] Carboxymethylcellulose Sodium [Thera Tears] 1 drop EYEBOTH QID 08/26/19 [History] Diclofenac Sodium [Voltaren 1% Gel] 2 gm TOP QID 08/26/19 [History] Diclofenac Sodium [Voltaren 1% Gel] 4 gm TOP QID 08/26/19 [History] Diltiazem [Dilacor XR] 180 mg PO DAILY 08/26/19 [History] Docusate Sodium 200 mg PO DAILY 08/26/19 [History] Fesoterodine Fumarate [Toviaz] 8 mg PO DAILY 08/26/19 [History] Furosemide [Lasix] 20 mg PO DAILY PRN 08/26/19 [History] Loperamide [Imodium] 2 mg PO Q12H PRN 08/26/19 [History] Magnesium Chloride [Slow-Mag] 2 tab PO DAILY 08/26/19 [History] Metoprolol Succinate [Toprol XL] 200 mg PO DAILY 08/26/19 [History] Multivitamin with Minerals [Multivitamins with Minerals] 1 tab PO DAILY 08/26/19 [History] Vortioxetine [Trintellix] 10 mg PO BEDTIME 08/26/19 [History] Warfarin Sliding Scale [Coumadin Sliding Scale] 1 each PO ASDIRECTED 08/26/19 [History] Warfarin [Coumadin] 5 mg PO MOFR 08/26/19 [History] Warfarin [Coumadin] 7.5 mg PO SUTUWETHSA 08/26/19 [History] cycloSPORINE [Restasis] 1 drop EYEBOTH BID 08/26/19 [History] lamoTRIgine [Lamotrigine] 50 mg PO BEDTIME 08/26/19 [History] lisinopriL [Zestril] 40 mg PO DAILY 08/26/19 [History] Vortioxetine [Trintellix] 10 mg PO BEDTIME tablet 09/07/19 [Rx] Warfarin [Coumadin] 7.5 mg PO SuMoWeFr@1600 #30 tablet 09/07/19 [Rx] Warfarin [Coumadin] 10 mg PO TuThSa@1600 #30 tablet 09/07/19 [Rx] bisacodyL [Dulcolax] 10 mg RECTAL DAILY PRN supp 09/07/19 [Rx] cephALEXin [Keflex] 500 mg PO TID 10 Days #30 cap 12/21/20 [Rx] Past Medical History HEENT History: Reports: Impaired Vision Cardiovascular History: Reports: Afib, Blood Clots/VTE/DVT, High Cholesterol, Hypertension Respiratory History: Reports: Sleep Apnea Genitourinary History: Reports: Renal Disease, Other (See Below) Other Genitourinary History: kidney cysts Neurological History: Reports: CVA, Neuropathy, Diabetic Psychiatric History: Reports: Anxiety, Depression Endocrine/Metabolic History: Reports: Diabetes, Type II, Hypothyroidism, Obesity/BMI 30+ Hematologic History: Reports: Anemia, Anticoagulation Therapy (Chronically anticoagulated on Coumadin.) - Past Surgical History Cardiovascular Surgical History: Reports: Cardiac Ablation Female Surgical History: Reports: Hysterectomy Neurological Surgical History: Reports: Lumbar Spine Other Neurological Surgeries/Procedures: spine surgery to neck and back Musculoskeletal Surgical History: Reports: Hip Replacement (Left total hip replacement), Knee Replacement (Bilateral total knee replacements) Social & Family History - Tobacco Use Tobacco Use Status *Q: Never Tobacco User - Caffeine Use Caffeine Use: Reports: Coffee - Alcohol Use Alcohol Use History: No - Living Situation & Occupation Occupation: Retired Social History Comment: Lives at [facility] - Review of Systems Review Of Systems: See Below Constitutional: Denies: Fever, Chills, Weakness HEENT: Denies: Throat Pain, Throat Swelling Respiratory: Denies: Shortness of Breath, Cough Cardiovascular: Denies: Chest Pain, Lightheadedness Endocrine: Denies: Fatigue, Polydypsia, Polyuria GI/Abdominal: Denies: Nausea, Vomiting : Denies: Dysuria, Hematuria Musculoskeletal: Denies: Neck Pain, Back Pain Skin: Reports: Wound (Also her on right medial thigh). Denies: Diaphoresis Neurological: Denies: Dizziness, Headache Psychiatric: Denies: Confusion Hematologic/Lymphatic: Reports: Easy Bleeding (Chronically anticoagulated on Coumadin.) ED EXAM, SKIN/RASH Exam: See Below Exam Limited By: No Limitations General Appearance: Alert, WD/WN, No Apparent Distress Eye Exam: Bilateral Eye: EOMI, Normal Inspection Ears: Normal External Exam, Hearing Grossly Normal Nose: Normal Inspection, Normal Mucosa, No Blood Throat/Mouth: Normal Oropharynx, Normal Voice, No Airway Compromise Head: Atraumatic, Normocephalic Neck: Normal Inspection, Supple, Non-Tender, Full Range of Motion Respiratory/Chest: No Respiratory Distress, Lungs Clear, Normal Breath Sounds, No Accessory Muscle Use, Chest Non-Tender Cardiovascular: Normal Peripheral Pulses, Regular Rate, Rhythm, No Gallop, No Murmur Peripheral Pulses: 2+: Radial (L), Radial (R) GI/Abdominal: Normal Bowel Sounds, Soft, Non-Tender, No Mass Back Exam: Normal Inspection Extremities: Normal Range of Motion, No Pedal Edema, Normal Capillary Refill Neurological: Alert, Oriented, CN II-XII Intact, No Motor/Sensory Deficits Psychiatric: Normal Affect, Normal Mood Skin: Warm, Dry, Erythema (Mild surrounding erythema on this right medial thigh wound.), Wound/Incision (Wound to subcutaneous fat area with greenish eschar at the base.) Location, Skin: Lower Extremity, Right (Right medial thigh with the wound to the subcutaneous fat area with green eschar.), Lower Extremity, Left (Healing wound on the upper aspect of the incision of her left total knee replacement. No evidence of cellulitis in this area.) Characteristics: Necrotic Associated features: Tenderness Course - Vital Signs Last Recorded V/S: Last Vital Signs Temp 37.2 C 12/21/20 20:03 Pulse 62 12/21/20 20:03 Resp 18 12/21/20 20:03 BP 164/59 H 12/21/20 20:03 Pulse Ox 96 12/21/20 20:03 - Orders/Labs/Meds Meds: Medications Discontinued Medications Generic Name Dose Route Start Last Admin Trade Name Freq PRN Reason Stop Dose Admin Cephalexin 500 mg 12/21/20 21:10 12/21/20 21:21 Cephalexin 500 Mg Cap PO 12/21/20 21:11 500 mg ONETIME ONE Administration - Re-Assessments/Exams Free Text/Narrative Re-Assessment/Exam: 12/21/20 21:00: Patient with long-standing ulcer on her right medial thigh. There is quite a bit of eschar in the base of the wound and there is some er ythema around it. I will have the patient do wet to dry dressings to the wound twice daily for now. I will also place the patient on Keflex 500 mg 3 times a day. She is to follow-up with her primary provider this coming week as she may need referral to a wound clinic. 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 I am placing you on Keflex (an antibiotic) to treat this infection. He will also need to have wet to dry dressing changes to the area after cleaning the wound with mild soap and water twice daily. The nursing staff at [facility] should be able to help you do these dressing changes twice daily. You will need to follow-up with your primary provider next week as you may need referral to a language specialist. You will also need to have your INR rechecked next week. Back to the emergency department for, spreading redness, severe weakness or any other concerning signs or symptoms. Sepsis Event Note (ED) - Evaluation Sepsis Screening Result: No Definite Risk - Focused Exam Vital Signs: Vital Signs Temp Pulse Resp BP Pulse Ox 12/21/20 20:03 37.2 C 62 18 164/59 H 96
[2020-12-21] MEDS ORDERED: Cephalexin 500 MG Cap PO ONE (21:10)
== END 2020-12-21 22:00 | disposition home or self-care (01) ==
LOC: FB.ED 19:52
DX: T81.40XA Infection following a procedure, unspecified, initial encounter (principal); L97.112 Non-pressure chronic ulcer of right thigh with fat layer exposed; I48.91 Unspecified atrial fibrillation; E78.00 Pure hypercholesterolemia, unspecified; I10 Essential (primary) hypertension; E11.40 Type 2 diabetes mellitus with diabetic neuropathy, unspecified; E03.9 Hypothyroidism, unspecified; E66.9 Obesity, unspecified; Z68.30 Body mass index [BMI] 30.0-30.9, adult; Z79.84 Long term (current) use of oral hypoglycemic drugs; Z79.01 Long term (current) use of anticoagulants; Z79.899 Other long term (current) drug therapy
CPT/HCPCS: 99282; A9270-GY

== ENCOUNTER 2021-05-10 12:53 | Emergency (ER) | payer MEDICARE ==
--- NOTE | 2021-05-10 13:15 | EDM.PDOC ---
ED HPI GENERAL MEDICAL PROBLEM - General Chief Complaint: Back Pain or Injury Stated Complaint: fall Time Seen by Provider: 05/10/21 13:10 Source of Information: Reports: Patient History Limitations: Reports: No Limitations - History of Present Illness INITIAL COMMENTS - FREE TEXT/NARRATIVE: 75-year-old female who presents to the emergency department from [facility] complaining of back pain, buttock pain and tailbone pain status post fall. She reports that she fell yesterday at approximately noon. She states she was going to sit on her wheeled walker and it was back further than she thought. She missed the walker and set right on the floor landing on her buttock and then falling backwards and tapping her occiput on the floor. There was no loss of consciousness. She does have pain in her buttock area and in her tailbone area and all up her entire back that she rates as a 7/10. She presents to the emergency department via van from [facility] for evaluation. She reports she has had pain all through the day. She has been urinating okay and there has been no hematuria vizard dizziness associated with this. She has had no vision problems. No headaches. No neck pain. There are no other associated signs or symptoms. There are no other modifying factors. 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: Acetaminophen lower back/coccyx Pain Score (Numeric/FACES): 4 - Related Data Allergies Allergy/AdvReac Type Severity Reaction Status Date / Time No Known Allergies Allergy Verified 05/10/21 13:08 Home Meds: Home Meds Calcium Carbonate/Vitamin D2 [Calcium with Vit D] 1 each PO BID 10/08/13 [History] Levothyroxine Sodium 50 mcg PO DAILY@0600 10/08/13 [History] busPIRone [Buspar] 15 mg PO BID@08,12 10/08/13 [History] metFORMIN HCl [Metformin HCl] 500 mg PO BID 10/08/13 [History] Acetaminophen [Tylenol Extra Strength] 1,000 mg PO TID 02/04/15 [History] Polyethylene Glycol 3350 [MiraLAX] 17 gm PO DAILY PRN 02/04/15 [History] Omeprazole 40 mg PO BID 02/05/15 [History] Potassium Chloride [Klor-Con 10] 10 meq PO DAILY 02/05/15 [History] Pravastatin [Pravachol] 40 mg PO BEDTIME 02/05/15 [History] Carboxymethylcellulose Sodium [Thera Tears] 1 drop EYEBOTH QID 08/26/19 [History] Diclofenac Sodium [Voltaren 1% Gel] 4 gm TOP QID 08/26/19 [History] Diltiazem [Dilacor XR] 180 mg PO DAILY 08/26/19 [History] Fesoterodine Fumarate [Toviaz] 8 mg PO DAILY 08/26/19 [History] Furosemide [Lasix] 20 mg PO DAILY 08/26/19 [History] Magnesium Chloride [Slow-Mag] 2 tab PO DAILY 08/26/19 [History] Metoprolol Succinate [Toprol XL] 200 mg PO DAILY 08/26/19 [History] Multivitamin with Minerals [Multivitamins with Minerals] 1 tab PO DAILY 08/26/19 [History] Warfarin [Coumadin] 5 mg PO MOFR 08/26/19 [History] Warfarin [Coumadin] 7.5 mg PO SUTUWETHSA 08/26/19 [History] cycloSPORINE [Restasis] 1 drop EYEBOTH BID 08/26/19 [History] lisinopriL [Zestril] 40 mg PO DAILY 08/26/19 [History] Vortioxetine [Trintellix] 10 mg PO BEDTIME tablet 09/07/19 [Rx] lamoTRIgine [Lamotrigine] 100 mg PO BEDTIME 05/10/21 [History] Past Medical History HEENT History: Reports: Impaired Vision Cardiovascular History: Reports: Afib, Blood Clots/VTE/DVT, High Cholesterol, Hypertension Respiratory History: Reports: Sleep Apnea Genitourinary History: Reports: Renal Disease, Other (See Below) Other Genitourinary History: kidney cysts Neurological History: Reports: CVA, Neuropathy, Diabetic Psychiatric History: Reports: Anxiety, Depression Endocrine/Metabolic History: Reports: Diabetes, Type II, Hypothyroidism, Obesity/BMI 30+ Hematologic History: Reports: Anemia, Anticoagulation Therapy (Chronically anticoagulated on Coumadin.) - Past Surgical History Cardiovascular Surgical History: Reports: Cardiac Ablation Female Surgical History: Reports: Hysterectomy Musculoskeletal Surgical History: Reports: Hip Replacement (Left total hip replacement), Knee Replacement (Bilateral total knee replacements) Social & Family History - Tobacco Use Tobacco Use Status *Q: Unknown Ever Used Tobacco (Nonsmoker.) - Caffeine Use Caffeine Use: Reports: Coffee - Alcohol Use Alcohol Use History: No - Living Situation & Occupation Living situation: Reports: Other (Lives at [facility].) 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 No sore throat.) Respiratory: Denies: Shortness of Breath, Cough Cardiovascular: Denies: Chest Pain, Lightheadedness, Palpitations, Syncope GI/Abdominal: Denies: Abdominal Pain, Nausea, Vomiting : Denies: Dysuria, Hematuria Musculoskeletal: Reports: Back Pain, Other (Buttock pain and tailbone pain.). Denies: Neck Pain Skin: Denies: Diaphoresis, Rash Neurological: Denies: Dizziness, Headache Hematologic/Lymphatic: Reports: Easy Bleeding, Easy Bruising, Other (Patient is chronically anticoagulated on Coumadin.) ED EXAM, GENERAL - Physical Exam Exam: See Below Exam Limited By: No Limitations General Appearance: Alert, WD/WN, Mild Distress, Other (Nontoxic appearing) Eye Exam: Bilateral Eye: EOMI, Normal Inspection, PERRL Ears: Normal External Exam, Hearing Grossly Normal Ear Exam: Bilateral Ear: Auricle Normal Nose: Normal Inspection, Normal Mucosa, No Blood Throat/Mouth: Normal Inspection, Normal Lips, Normal Oropharynx Head: Atraumatic, Normocephalic Neck: Normal Inspection, Supple, Non-Tender, Full Range of Motion Respiratory/Chest: No Respiratory Distress, Lungs Clear, Normal Breath Sounds, No Accessory Muscle Use, Chest Non-Tender Cardiovascular: Normal Peripheral Pulses, Regular Rate, Rhythm Peripheral Pulses: 2+: Radial (L), Radial (R) GI/Abdominal: Normal Bowel Sounds, Soft, Non-Tender, No Mass Back Exam: Vertebral Tenderness (Diffusely along the lumbar and thoracic spine. Tender over the coccyx area. No crepitus noted.), Other (No crepitus or bony deformity noted.). No: Muscle Spasm, Paraspinal Tenderness Extremities: Normal Inspection, Normal Range of Motion, Non-Tender, No Pedal Edema, Normal Capillary Refill Neurological: Alert, Oriented, CN II-XII Intact, Normal Cognition, No Motor/Sensory Deficits Psychiatric: Normal Affect Skin Exam: Warm, Dry, Intact, Normal Color, No Rash Course - Vital Signs Last Recorded V/S: Last Vital Signs Temp 36.2 C 05/10/21 15:15 Pulse 68 05/10/21 15:15 Resp 16 05/10/21 15:15 BP 151/68 H 05/10/21 15:15 Pulse Ox 97 05/10/21 15:15 - Orders/Labs/Meds Orders: Active Orders 24 hr Category Date Time Status Head wo Cont [CT] Stat Exams 05/10/21 13:23 Taken Lumbar Spine 2 or 3V [CR] Stat Exams 05/10/21 13:23 Taken Pelvis 1V or 2V [CR] Stat Exams 05/10/21 13:23 Taken Sacrum Coccyx Min 2V [CR] Stat Exams 05/10/21 13:23 Taken Thoracic Spine 3V [CR] Stat Exams 05/10/21 13:23 Taken Labs: Laboratory Tests 05/10/21 Range/Units 13:35 PT 28.3 H (9.0-11.1) sec INR 2.80 H (1.00-1.24) - Re-Assessments/Exams Free Text/Narrative Re-Assessment/Exam: 05/10/21 14:47: The patient remains awake and alert. She is nontoxic and appears in no acute distress. I did receive a call from Dr. Lux, radiologist, and he and all the x-rays and the CT scan of her head and he feels that there are no fractures in the pelvis, coccyx, lumbar spine and thoracic spine. There is osteopenia and there were also degenerative changes but no fractures were seen. The CT scan of her head showed no bleeding but there was evidence of a previous stroke the patient had a stroke back in August 2019. Her symptoms don't support a new stroke. She is here only because of her mists seeding and fall in her buttock yesterday. I discussed all this with the patient and I feel that she is stable for discharge back to [facility] and she can continue to take Tylenol as needed for pain. Precautions and reasons to return to the emergency department were discussed with the patient while she was in the emergency department and were detailed in the patient's discharge instructions. Departure - Departure Time of Disposition: 15:00 Disposition: Home, Self-Care 01 Condition: Good (Stable) Clinical Impression: Contusion, buttock Qualifiers: Encounter type: initial encounter Qualified Code(s): S30.0XXA - Contusion of lower back and pelvis, initial encounter Back strain Qualifiers: Encounter type: initial encounter Qualified Code(s): S39.012A - Strain of muscle, fascia and tendon of lower back, initial encounter Head contusion Qualifiers: Encounter type: initial encounter Contusion of head detail: unspecified part of head Qualified Code(s): S00.93XA - Contusion of unspecified part of head, initial encounter Fall from standing Qualifiers: Encounter type: initial encounter Qualified Code(s): W19.XXXA - Unspecified fall, initial encounter - Discharge Information Instructions: Fall Prevention in the Home, Adult, [id number], Contusion, [id number], Lumbosacral Strain, Tailbone Injury, [id number] Referrals: Carlos Yeager MD [Primary Care Provider] - Forms: ED Department Discharge Additional Instructions: The x-rays of your upper and lower back, pelvis and tailbone showed no evidence of a fracture. You do have degenerative changes in your back and pelvis area. The CT scan of your head showed evidence of your old stroke but no bleeding and no fractures. You should ambulate as tolerated. You can take Tylenol 1000 mg by mouth every 6 hours as needed for pain. Back to the emergency department for marked increase in pain, abdominal pain, vomiting, severe weakness or any other concerning signs or symptoms. Sepsis Event Note (ED) - Evaluation Sepsis Screening Result: No Definite Risk - Focused Exam Vital Signs: Vital Signs Temp Pulse Resp BP Pulse Ox 05/10/21 15:15 36.2 C 68 16 151/68 H 97 - My Orders Last 24 Hours: My Active Orders 05/10/21 13:23 Head wo Cont [CT] Stat Lumbar Spine 2 or 3V [CR] Stat Pelvis 1V or 2V [CR] Stat Sacrum Coccyx Min 2V [CR] Stat Thoracic Spine 3V [CR] Stat - Assessment/Plan Last 24 Hours: My Active Orders 05/10/21 13:23 Head wo Cont [CT] Stat Lumbar Spine 2 or 3V [CR] Stat Pelvis 1V or 2V [CR] Stat Sacrum Coccyx Min 2V [CR] Stat Thoracic Spine 3V [CR] Stat
[2021-05-10 18:42] VITALS: BP 151/68; PULSE 68
== END 2021-05-10 15:30 | disposition home or self-care (01) ==
LOC: FB.ED 12:53
DX: S39.012A Strain of muscle, fascia and tendon of lower back, initial encounter (principal); S00.83XA Contusion of other part of head, initial encounter; E78.00 Pure hypercholesterolemia, unspecified; I10 Essential (primary) hypertension; E11.40 Type 2 diabetes mellitus with diabetic neuropathy, unspecified; E03.9 Hypothyroidism, unspecified; E66.9 Obesity, unspecified; Z68.41 Body mass index [BMI] 40.0-44.9, adult; Z79.899 Other long term (current) drug therapy; Z79.84 Long term (current) use of oral hypoglycemic drugs; W18.39XA Other fall on same level, initial encounter
CPT/HCPCS: 36415; 70450; 72072; 72100; 72170; 72220; 85610; 99284-25

== ENCOUNTER 2022-04-01 09:54 | Emergency (ER) | payer MEDICARE ==
[2022-04-01 12:35] VITALS: BP 145/84; PULSE 78
== END 2022-04-01 12:18 | disposition home or self-care (01) ==
LOC: FB.ED 09:54
DX: S00.93XA Contusion of unspecified part of head, initial encounter (principal); I10 Essential (primary) hypertension; E66.9 Obesity, unspecified; E03.9 Hypothyroidism, unspecified; I48.91 Unspecified atrial fibrillation; E78.00 Pure hypercholesterolemia, unspecified; E11.40 Type 2 diabetes mellitus with diabetic neuropathy, unspecified; Z79.01 Long term (current) use of anticoagulants; Z79.84 Long term (current) use of oral hypoglycemic drugs; Z79.899 Other long term (current) drug therapy; W01.0XXA Fall on same level from slipping, tripping and stumbling without subsequent striking against object, initial encounter; Y92.002 Bathroom of unspecified non-institutional (private) residence as the place of occurrence of the external cause
CPT/HCPCS: 70450; 73502-LT; 99284

== ENCOUNTER 2022-06-01 18:43 | Emergency (ER) | payer MEDICARE ==
[2022-06-01] MEDS ORDERED: Acetaminophen 500 MG Tab PO ONE (20:37)
[2022-06-01 21:25] VITALS: BP 149/74; PULSE 70
== END 2022-06-01 20:45 | disposition home or self-care (01) ==
LOC: FB.ED 18:43
DX: M16.11 Unilateral primary osteoarthritis, right hip (principal); E78.00 Pure hypercholesterolemia, unspecified; I10 Essential (primary) hypertension; E11.9 Type 2 diabetes mellitus without complications; Z79.899 Other long term (current) drug therapy; Z79.84 Long term (current) use of oral hypoglycemic drugs; Z79.01 Long term (current) use of anticoagulants; Z90.710 Acquired absence of both cervix and uterus; W01.0XXA Fall on same level from slipping, tripping and stumbling without subsequent striking against object, initial encounter
CPT/HCPCS: 73502; 99283; A9270

== ENCOUNTER 2022-11-02 11:37 | Inpatient (IN) | payer MEDICARE ==
[2022-11-02] MEDS ORDERED: traMADol 50 MG Tab PO ONE (12:58)
[2022-11-02] MEDS ORDERED: Acetaminophen/HYDROcodone 325-7.5 MG Tab PO ONE (13:43)
[2022-11-02 14:09] LABS: BASOPHILS ABSOLUTE AUTO 0.1 x10-3/uL (0.0-0.1); BASOPHILS PERCENT AUTO 0.9 % (0.2-1.5); EOSINOPHILS ABSOLUTE AUTO 0.2 x10-3/uL (0.0-0.8); EOSINOPHILS PERCENT AUTO 3.8 % (0.6-8.1); HEMATOCRIT 40.3 % (34.2-48.2); LYMPHOCYTES ABSOLUTE AUTO 1.6 x10-3/uL (1.0-4.4); LYMPHOCYTES PERCENT AUTO 26.2 % (18.4-52.1); MEAN CORPUSCULAR HEMOGLOBIN 31.3 pg (23.9-33.9); MEAN CORPUSCULAR HGB CONC 32.2 g/dL (31.9-34.8); MEAN CORPUSCULAR VOLUME 97.4 fL (76.7-100.5); MEAN PLATELET VOLUME 7.6 fL (7.1-12.4); MONOCYTES ABSOLUTE AUTO 0.4 x10-3/uL (0.3-1.0); NEUTROPHILS ABSOLUTE AUTO 3.8 x10-3/uL (1.5-6.3); NEUTROPHILS PERCENT AUTO 62.1 % (30.8-76.2); PLATELET COUNT,PLT 276 x10(3)uL (151-488); RED BLOOD CELL COUNT 4.14 x10(6)uL (3.60-5.20)
[2022-11-02 14:11] LABS: BLOOD UREA NITROGEN,BUN 52 mg/dL (7-18); CALCIUM 9.8 mg/dL (8.6-10.2); CARBON DIOXIDE,CO2 27 mmol/L (21-32); CHLORIDE,CL 107 mmol/L (100-110); CREATININE 1.1 mg/dL (0.55-1.02); EST CRCL DRUG DOSING (CG) 31.81 mL/min; ESTIMATED GFR 51 mL/min (>60); GLUCOSE RANDOM 93 mg/dL (80-116); POTASSIUM,K 5.4 mmol/L (3.5-5.3); SODIUM,NA 144 mmol/L (135-145)
[2022-11-02 14:17] LABS: A/G RATIO 1.1; ALANINE AMINOTRANSFERASE,ALT 15 U/L (12-36); ALBUMIN 3.7 g/dL (3.2-4.6); ALKALINE PHOSPHATASE 91 IU/L (56-112); ASPARTATE AMNIOTRANSFERASE,AST 20 IU/L (5-25); BILIRUBIN TOTAL 0.3 mg/dL (0.1-1.3); PROTEIN TOTAL,TP 7.1 g/dL (6.0-8.0)
[2022-11-02 14:18] LABS: INR 3.19 (1.00-1.24); PROTHROMBIN TIME 31.7 sec (9.0-11.1)
[2022-11-02 14:19] LABS: BUN/CREATININE RATIO 47.3 (9-20)
[2022-11-02] MEDS ORDERED: Ketorolac 30 MG/ML SDV IM ONE (15:40)
[2022-11-02] MEDS ORDERED: Polyethylene Glycol 3350 Powder 17 GM Packet PO PRN (17:17)
[2022-11-02] MEDS ORDERED: oxyCODONE 5 MG Tab PO PRN (17:26)
[2022-11-02] MEDS ORDERED: Warfarin Sliding Scale PO SCH (17:30)
[2022-11-02] MEDS ORDERED: Ketorolac 30 MG/ML SDV ONE (18:39)
[2022-11-02] MEDS ORDERED: WARFARIN 5 MG PO ONE (19:00)
[2022-11-02] MEDS ORDERED: Naproxen 500 MG Tab PO ONE (21:00)
[2022-11-02] MEDS ORDERED: DICLOFENAC SODIUM 1% TOP SCH (21:00)
[2022-11-02] MEDS ORDERED: Melatonin 3 MG Tab PO SCH (21:00)
[2022-11-02] MEDS ORDERED: busPIRone 15 MG Tab PO SCH (21:00)
[2022-11-02] MEDS ORDERED: lamoTRIgine 100 MG Tab PO SCH (21:00)
[2022-11-02] MEDS ORDERED: Pravastatin 20 MG Tab PO SCH (21:00)
[2022-11-02] MEDS ORDERED: Calcium Carbonate 500 MG Tablet PO ONE (21:00)
[2022-11-02] MEDS ORDERED: Acetaminophen 500 MG Tab PO SCH (21:00)
[2022-11-02] MEDS ORDERED: metFORMIN 500 MG Tab PO SCH (21:00)
[2022-11-02] MEDS ORDERED: Metoprolol Succinate 100 MG Tab.ER PO SCH (21:00)
[2022-11-02] MEDS ORDERED: Lisinopril 20 MG Tab PO SCH ×2 (22:01→22:15)
[2022-11-02] MEDS: THERA TEARS EYEBOTH SCH (22:16)
[2022-11-02] MEDS ORDERED: Gabapentin 300 MG Cap ONE (22:30)
[2022-11-02] MEDS ORDERED: TRINTELLIX PO SCH (22:45)
[2022-11-02] MEDS: Gabapentin 300 MG Cap PO SCH (22:53)
[2022-11-03] MEDS ORDERED: Levothyroxine 50 MCG Tab PO SCH (06:00)
[2022-11-03 06:35] LABS: BLOOD UREA NITROGEN,BUN 65 mg/dL (7-18); CALCIUM 9.4 mg/dL (8.6-10.2); CARBON DIOXIDE,CO2 27 mmol/L (21-32); CHLORIDE,CL 105 mmol/L (100-110); CREATININE 1.4 mg/dL (0.55-1.02); EST CRCL DRUG DOSING (CG) 24.99 mL/min; ESTIMATED GFR 39 mL/min (>60); GLUCOSE RANDOM 105 mg/dL (80-116); POTASSIUM,K 6.1 mmol/L (3.5-5.3); SODIUM,NA 140 mmol/L (135-145)
[2022-11-03 06:36] LABS: BUN/CREATININE RATIO 46.4 (9-20)
[2022-11-03 06:44] LABS: INR 4.06 (1.00-1.24); PROTHROMBIN TIME 40.2 sec (9.0-11.1)
[2022-11-03] MEDS ORDERED: Sodium Polystyrene Sulfonate 15 GM/60 ML Susp 60 ML Bot PO SCH (08:15)
[2022-11-03] MEDS ORDERED: amLODIPine 2.5 MG Tab PO SCH (09:00)
[2022-11-03] MEDS ORDERED: Potassium Chloride 10 MEQ Tab.ER PO SCH (09:00)
[2022-11-03] MEDS ORDERED: Lisinopril 20 MG Tab PO SCH (09:00)
[2022-11-03] MEDS ORDERED: Metoprolol Succinate 100 MG Tab.ER PO SCH (09:00)
[2022-11-03] MEDS ORDERED: Sodium Chloride 0.9% 10 ML Syringe FLUSH PRN (09:08)
[2022-11-03] MEDS: Dextrose 5% in Water 1,000 ML IV SCH ×2 (09:53→19:30)
[2022-11-03] MEDS: Acetaminophen 500 MG Tab PO SCH ×4 (10:44→20:20)
[2022-11-03] MEDS: lamoTRIgine 100 MG Tab PO SCH ×2 (10:46→20:14)
[2022-11-03] MEDS: metFORMIN 500 MG Tab PO SCH ×3 (10:46→20:14)
[2022-11-03] MEDS: Melatonin 3 MG Tab PO SCH ×2 (10:47→20:14)
[2022-11-03] MEDS: busPIRone 15 MG Tab PO SCH ×2 (10:54→20:13)
[2022-11-03] MEDS: THERA TEARS EYEBOTH SCH ×4 (10:55→20:12)
[2022-11-03] MEDS: Menthol/Zinc Oxide Ointment 113 GM Tube TOP SCH ×2 (10:55→20:13)
[2022-11-03] MEDS: Diltiazem 180 MG Cap.CD PO SCH (10:56)
[2022-11-03] MEDS: Cranberry 500 MG Cap PO SCH (10:56)
[2022-11-03] MEDS: Mirabegron 25 MG Tab Extended Release PO SCH (10:57)
[2022-11-03] MEDS: Naproxen 500 MG Tab PO SCH ×2 (10:57→20:16)
[2022-11-03] MEDS: Furosemide 20 MG Tab PO SCH (10:57)
[2022-11-03] MEDS: [UNRECOGNIZED DRUG - OTHER] PO SCH (10:57)
[2022-11-03] MEDS: Calcium Carbonate 500 MG Tablet PO SCH ×2 (10:58→20:17)
[2022-11-03] MEDS: OLOPATADINE 0.2% EYEBOTH SCH (10:58)
[2022-11-03] MEDS: Multivitamins with Iron/Calcium/Folic Acid/Minerals Tab PO SCH (10:58)
[2022-11-03] MEDS: Vitamin B Complex with Vitamin C Tab PO SCH (10:58)
[2022-11-03] MEDS: Pantoprazole 40 MG Tab.CR PO SCH (10:58)
[2022-11-03] MEDS: Diclofenac Sodium 1% Gel 100 GM Tube TOP SCH ×4 (10:59→20:21)
[2022-11-03] MEDS: Metoprolol Succinate 25 MG Tab.ER PO SCH ×2 (11:00→20:18)
[2022-11-03] MEDS: Gabapentin 300 MG Cap PO SCH ×2 (12:28→20:16)
[2022-11-03] MEDS ORDERED: Furosemide 40 MG/4 ML VIAL IVPUSH ONE (16:04)
[2022-11-03] MEDS: Pravastatin 20 MG Tab PO SCH (20:18)
[2022-11-03] MEDS: Vortioxetine Hydrobromide 5 MG TABLET PO SCH (20:19)
[2022-11-04] MEDS: Pantoprazole 40 MG Tab.CR PO SCH (05:11)
[2022-11-04] MEDS: Levothyroxine 50 MCG Tab PO SCH (05:11)
[2022-11-04] MEDS: Dextrose 5% in Water 1,000 ML IV SCH (05:13)
[2022-11-04 06:38] LABS: BLOOD UREA NITROGEN,BUN 70 mg/dL (7-18); CALCIUM 9.2 mg/dL (8.6-10.2); CARBON DIOXIDE,CO2 28 mmol/L (21-32); CHLORIDE,CL 98 mmol/L (100-110); CREATININE 1.4 mg/dL (0.55-1.02); EST CRCL DRUG DOSING (CG) 24.99 mL/min; ESTIMATED GFR 39 mL/min (>60); GLUCOSE RANDOM 115 mg/dL (80-116); POTASSIUM,K 5.1 mmol/L (3.5-5.3); SODIUM,NA 132 mmol/L (135-145)
[2022-11-04 06:53] LABS: INR 2.73 (1.00-1.24); PROTHROMBIN TIME 27.3 sec (9.0-11.1)
[2022-11-04] MEDS: busPIRone 15 MG Tab PO SCH ×2 (08:30→20:45)
[2022-11-04] MEDS: Menthol/Zinc Oxide Ointment 113 GM Tube TOP SCH ×2 (08:30→20:44)
[2022-11-04] MEDS ORDERED: Sodium Chloride 0.9% 1,000 ML IV SCH (08:30)
[2022-11-04] MEDS: Cranberry 500 MG Cap PO SCH (08:34)
[2022-11-04] MEDS: Diltiazem 180 MG Cap.CD PO SCH (08:34)
[2022-11-04] MEDS: THERA TEARS EYEBOTH SCH ×4 (08:34→20:44)
[2022-11-04] MEDS: OLOPATADINE 0.2% EYEBOTH SCH (08:35)
[2022-11-04] MEDS: Metoprolol Succinate 25 MG Tab.ER PO SCH ×2 (08:37→21:03)
[2022-11-04] MEDS: Calcium Carbonate 500 MG Tablet PO SCH ×2 (08:38→21:02)
[2022-11-04] MEDS: Furosemide 20 MG Tab PO SCH (08:38)
[2022-11-04] MEDS: metFORMIN 500 MG Tab PO SCH ×2 (08:39→20:59)
[2022-11-04] MEDS: [UNRECOGNIZED DRUG - OTHER] PO SCH (08:39)
[2022-11-04] MEDS: Mirabegron 25 MG Tab Extended Release PO SCH (08:40)
[2022-11-04] MEDS: Acetaminophen 500 MG Tab PO SCH ×3 (08:41→21:04)
[2022-11-04] MEDS: Diclofenac Sodium 1% Gel 100 GM Tube TOP SCH ×4 (08:47→21:05)
[2022-11-04] MEDS: Naproxen 500 MG Tab PO SCH ×2 (08:48→21:00)
[2022-11-04] MEDS: Multivitamins with Iron/Calcium/Folic Acid/Minerals Tab PO SCH (08:49)
[2022-11-04] MEDS: Vitamin B Complex with Vitamin C Tab PO SCH (08:50)
[2022-11-04] MEDS ORDERED: Lisinopril 10 MG Tab PO SCH (09:00)
[2022-11-04] MEDS: Lisinopril 2.5 MG Tab PO SCH (09:10)
[2022-11-04] MEDS ORDERED: Warfarin 5 MG, Warfarin 2.5 MG PO ONE ×2 (16:00)
[2022-11-04] MEDS: lamoTRIgine 100 MG Tab PO SCH (21:00)
[2022-11-04] MEDS: Melatonin 3 MG Tab PO SCH (21:00)
[2022-11-04] MEDS: Pravastatin 20 MG Tab PO SCH (21:02)
[2022-11-04] MEDS: Vortioxetine Hydrobromide 5 MG TABLET PO SCH (21:04)
[2022-11-04] MEDS: Gabapentin 300 MG Cap PO SCH (21:08)
[2022-11-05] MEDS: Pantoprazole 40 MG Tab.CR PO SCH (06:15)
[2022-11-05] MEDS: Levothyroxine 50 MCG Tab PO SCH (06:15)
[2022-11-05 07:07] LABS: BLOOD UREA NITROGEN,BUN 78 mg/dL (7-18); CALCIUM 9.3 mg/dL (8.6-10.2); CARBON DIOXIDE,CO2 24 mmol/L (21-32); CHLORIDE,CL 101 mmol/L (100-110); CREATININE 1.5 mg/dL (0.55-1.02); EST CRCL DRUG DOSING (CG) 23.32 mL/min; ESTIMATED GFR 35 mL/min (>60); GLUCOSE RANDOM 103 mg/dL (80-116); POTASSIUM,K 5.2 mmol/L (3.5-5.3); SODIUM,NA 134 mmol/L (135-145)
[2022-11-05 07:24] LABS: INR 2.74 (1.00-1.24); PROTHROMBIN TIME 27.4 sec (9.0-11.1)
[2022-11-05] MEDS: busPIRone 15 MG Tab PO SCH ×2 (08:36→20:52)
[2022-11-05] MEDS: Diclofenac Sodium 1% Gel 100 GM Tube TOP SCH ×4 (08:37→20:53)
[2022-11-05] MEDS: Menthol/Zinc Oxide Ointment 113 GM Tube TOP SCH ×2 (08:38→20:53)
[2022-11-05] MEDS: THERA TEARS EYEBOTH SCH ×4 (08:38→20:58)
[2022-11-05] MEDS: Cranberry 500 MG Cap PO SCH (08:39)
[2022-11-05] MEDS: Diltiazem 180 MG Cap.CD PO SCH (08:39)
[2022-11-05] MEDS: Mirabegron 25 MG Tab Extended Release PO SCH (08:39)
[2022-11-05] MEDS: OLOPATADINE 0.2% EYEBOTH SCH (08:39)
[2022-11-05] MEDS: metFORMIN 500 MG Tab PO SCH ×2 (08:40→20:57)
[2022-11-05] MEDS: Naproxen 500 MG Tab PO SCH ×2 (08:40→20:59)
[2022-11-05] MEDS: Furosemide 20 MG Tab PO SCH (08:40)
[2022-11-05] MEDS: Calcium Carbonate 500 MG Tablet PO SCH ×2 (08:40→20:56)
[2022-11-05] MEDS: Multivitamins with Iron/Calcium/Folic Acid/Minerals Tab PO SCH (08:41)
[2022-11-05] MEDS: Vitamin B Complex with Vitamin C Tab PO SCH (08:41)
[2022-11-05] MEDS: Metoprolol Succinate 25 MG Tab.ER PO SCH ×2 (08:41→20:55)
[2022-11-05] MEDS: Acetaminophen 500 MG Tab PO SCH ×3 (08:42→20:54)
[2022-11-05] MEDS: Lisinopril 2.5 MG Tab PO SCH (08:42)
[2022-11-05] MEDS: [UNRECOGNIZED DRUG - OTHER] PO SCH (08:43)
[2022-11-05] MEDS ORDERED: Warfarin 5 MG Tab PO ONE (16:00)
[2022-11-05] MEDS: Gabapentin 300 MG Cap PO SCH (20:51)
[2022-11-05] MEDS: Vortioxetine Hydrobromide 5 MG TABLET PO SCH (20:52)
[2022-11-05] MEDS: Pravastatin 20 MG Tab PO SCH (20:56)
[2022-11-05] MEDS: Melatonin 3 MG Tab PO SCH (20:59)
[2022-11-05] MEDS: lamoTRIgine 100 MG Tab PO SCH (20:59)
[2022-11-06] MEDS: Pantoprazole 40 MG Tab.CR PO SCH (06:30)
[2022-11-06] MEDS: Levothyroxine 50 MCG Tab PO SCH (06:30)
[2022-11-06 06:45] LABS: BLOOD UREA NITROGEN,BUN 77 mg/dL (7-18); CALCIUM 9.8 mg/dL (8.6-10.2); CARBON DIOXIDE,CO2 25 mmol/L (21-32); CHLORIDE,CL 105 mmol/L (100-110); CREATININE 1.3 mg/dL (0.55-1.02); EST CRCL DRUG DOSING (CG) 26.91 mL/min; ESTIMATED GFR 42 mL/min (>60); GLUCOSE RANDOM 106 mg/dL (80-116); POTASSIUM,K 5.2 mmol/L (3.5-5.3); SODIUM,NA 138 mmol/L (135-145)
[2022-11-06 06:47] LABS: BUN/CREATININE RATIO 59.2 (9-20); INR 2.37 (1.00-1.24); PROTHROMBIN TIME 23.8 sec (9.0-11.1)
[2022-11-06] MEDS: Menthol/Zinc Oxide Ointment 113 GM Tube TOP SCH (08:30)
[2022-11-06] MEDS: Diclofenac Sodium 1% Gel 100 GM Tube TOP SCH (08:31)
[2022-11-06] MEDS: THERA TEARS EYEBOTH SCH (08:32)
[2022-11-06] MEDS: [UNRECOGNIZED DRUG - OTHER] PO SCH (08:32)
[2022-11-06] MEDS: Cranberry 500 MG Cap PO SCH (08:32)
[2022-11-06] MEDS: Lisinopril 2.5 MG Tab PO SCH (08:33)
[2022-11-06] MEDS: Furosemide 20 MG Tab PO SCH (08:33)
[2022-11-06] MEDS: Acetaminophen 500 MG Tab PO SCH (08:33)
[2022-11-06] MEDS: OLOPATADINE 0.2% EYEBOTH SCH (08:34)
[2022-11-06] MEDS: metFORMIN 500 MG Tab PO SCH (08:34)
[2022-11-06] MEDS: Naproxen 500 MG Tab PO SCH (08:34)
[2022-11-06] MEDS: Metoprolol Succinate 25 MG Tab.ER PO SCH (08:36)
[2022-11-06] MEDS: busPIRone 15 MG Tab PO SCH (08:36)
[2022-11-06] MEDS: Calcium Carbonate 500 MG Tablet PO SCH (08:36)
[2022-11-06] MEDS: Multivitamins with Iron/Calcium/Folic Acid/Minerals Tab PO SCH (08:36)
[2022-11-06] MEDS: Mirabegron 25 MG Tab Extended Release PO SCH (08:37)
[2022-11-06] MEDS: Vitamin B Complex with Vitamin C Tab PO SCH (08:37)
[2022-11-06] MEDS: Diltiazem 180 MG Cap.CD PO SCH (08:41)
[2022-11-06] MEDS ORDERED: oxyCODONE 5 MG Tab PO PRN (10:32)
[2022-11-06 10:41] VITALS: BP 111/53; PULSE 58
[2022-11-06] MEDS ORDERED: Warfarin 5 MG, Warfarin 2.5 MG PO SCH ×2 (16:00)
[2022-11-07] MEDS ORDERED: Warfarin 5 MG Tab PO SCH (16:00)
== END 2022-11-06 10:00 | disposition swing bed (61) | DRG 556 ==
LOC: FB.ED 11:37 → FB.MS 17:00 → OBSVTOIN 11-03 08:21
PROVIDERS: ADMIT Family Medicine; ATTEND Family Medicine
DX: M25.551 Pain in right hip (principal); E87.1 Hypo-osmolality and hyponatremia; I48.11 Longstanding persistent atrial fibrillation; M16.11 Unilateral primary osteoarthritis, right hip; E87.5 Hyperkalemia; R79.1 Abnormal coagulation profile; F32.A Depression, unspecified; F41.9 Anxiety disorder, unspecified; D64.9 Anemia, unspecified; E11.9 Type 2 diabetes mellitus without complications; Z96.649 Presence of unspecified artificial hip joint; M17.11 Unilateral primary osteoarthritis, right knee; R26.89 Other abnormalities of gait and mobility; R62.7 Adult failure to thrive; Z79.890 Hormone replacement therapy; Z88.8 Allergy status to other drugs, medicaments and biological substances; I48.91 Unspecified atrial fibrillation; E11.40 Type 2 diabetes mellitus with diabetic neuropathy, unspecified; I10 Essential (primary) hypertension; E03.9 Hypothyroidism, unspecified; Z87.891 Personal history of nicotine dependence; Z90.710 Acquired absence of both cervix and uterus; E78.00 Pure hypercholesterolemia, unspecified; E66.9 Obesity, unspecified; Z79.01 Long term (current) use of anticoagulants; Z79.84 Long term (current) use of oral hypoglycemic drugs; Z79.899 Other long term (current) drug therapy; Z86.718 Personal history of other venous thrombosis and embolism; Z86.73 Personal history of transient ischemic attack (TIA), and cerebral infarction without residual deficits; Z96.651 Presence of right artificial knee joint; W19.XXXA Unspecified fall, initial encounter
CPT/HCPCS: 36415; 73502-RT; 73562-RT; 80048; 80053; 82947; 84132; 85025; 85610; 86140; 96372; 97110-GO; 97116-GP; 97161-GP; 97165-GO; 97530-GO; 97535-GO; 97542-GO; 99222; 99232; 99285; A9270-GY; G0378; J1885; J1940; J3490; J7030; J7060

== ENCOUNTER 2022-11-06 10:00 | Inpatient (IN) | payer MEDICARE ==
[2022-11-06] MEDS ORDERED: Polyethylene Glycol 3350 Powder 17 GM Packet PO PRN (11:10)
[2022-11-06] MEDS ORDERED: Nystatin Topical Powder 15 GM Bottle TOP PRN (11:10)
[2022-11-06] MEDS ORDERED: Loperamide 2 MG Cap PO PRN (12:01)
[2022-11-06] MEDS ORDERED: Warfarin Sliding Scale PO SCH (12:15)
[2022-11-06] MEDS: Acetaminophen 500 MG Tab PO SCH ×2 (13:16→21:05)
[2022-11-06] MEDS: Diclofenac Sodium 1% Gel 100 GM Tube TOP SCH ×3 (13:17→21:01)
[2022-11-06] MEDS: Carboxymethylcellulose Sodium 0.5% Ophth Soln 15 ML Bottle EYEBOTH SCH ×3 (13:17→21:02)
[2022-11-06] MEDS: Warfarin 5 MG, Warfarin 2.5 MG PO SCH ×2 (15:56)
[2022-11-06] MEDS: metFORMIN 500 MG Tab PO SCH (18:26)
[2022-11-06] MEDS: Menthol/Zinc Oxide Ointment 113 GM Tube TOP SCH (21:00)
[2022-11-06] MEDS: Metoprolol Succinate 25 MG Tab.ER PO SCH (21:01)
[2022-11-06] MEDS: Pravastatin 20 MG Tab PO SCH (21:02)
[2022-11-06] MEDS: busPIRone 15 MG Tab PO SCH (21:03)
[2022-11-06] MEDS: Naproxen 500 MG Tab PO SCH (21:04)
[2022-11-06] MEDS: Calcium Carbonate 500 MG Tablet PO SCH (21:04)
[2022-11-06] MEDS: Gabapentin 300 MG Cap PO SCH (21:04)
[2022-11-06] MEDS: Melatonin 3 MG Tab PO SCH (21:04)
[2022-11-06] MEDS: lamoTRIgine 100 MG Tab PO SCH (21:05)
[2022-11-07] MEDS: Pantoprazole 40 MG Tab.CR PO SCH (06:02)
[2022-11-07] MEDS: Levothyroxine 50 MCG Tab PO SCH (06:02)
[2022-11-07 06:29] LABS: INR 2.18 (1.00-1.24); PROTHROMBIN TIME 21.9 sec (9.0-11.1)
[2022-11-07] MEDS: Multivitamins with Iron/Calcium/Folic Acid/Minerals Tab PO SCH (08:42)
[2022-11-07] MEDS: busPIRone 15 MG Tab PO SCH ×2 (08:42→20:39)
[2022-11-07] MEDS: Menthol/Zinc Oxide Ointment 113 GM Tube TOP SCH ×2 (08:43→20:37)
[2022-11-07] MEDS: Mirabegron 25 MG Tab Extended Release PO SCH (08:43)
[2022-11-07] MEDS: Calcium Carbonate 500 MG Tablet PO SCH ×2 (08:44→20:38)
[2022-11-07] MEDS: Carboxymethylcellulose Sodium 0.5% Ophth Soln 15 ML Bottle EYEBOTH SCH ×4 (08:44→20:43)
[2022-11-07] MEDS: Vitamin B Complex with Vitamin C Tab PO SCH (08:44)
[2022-11-07] MEDS: metFORMIN 500 MG Tab PO SCH ×2 (08:45→17:17)
[2022-11-07] MEDS: Diltiazem 180 MG Cap.CD PO SCH (08:45)
[2022-11-07] MEDS: Ketotifen 0.025% Ophth Soln 5 ML Bottle EYEBOTH SCH ×2 (08:45→20:38)
[2022-11-07] MEDS: Furosemide 20 MG Tab PO SCH (08:45)
[2022-11-07] MEDS: Lisinopril 2.5 MG Tab PO SCH (08:45)
[2022-11-07] MEDS: Magnesium Chloride 64 MG Tab.ER PO SCH (08:46)
[2022-11-07] MEDS: Cranberry 500 MG Cap PO SCH (08:46)
[2022-11-07] MEDS: Acetaminophen 500 MG Tab PO SCH ×3 (08:46→20:51)
[2022-11-07] MEDS: Metoprolol Succinate 25 MG Tab.ER PO SCH ×2 (08:46→21:01)
[2022-11-07] MEDS: Naproxen 500 MG Tab PO SCH ×2 (08:46→20:43)
[2022-11-07] MEDS: Diclofenac Sodium 1% Gel 100 GM Tube TOP SCH ×4 (08:47→20:57)
[2022-11-07] MEDS: oxyCODONE 5 MG Tab PO PRN (10:58)
[2022-11-07] MEDS: Warfarin 5 MG Tab PO SCH (17:16)
[2022-11-07] MEDS: Gabapentin 300 MG Cap PO SCH (20:38)
[2022-11-07] MEDS: Pravastatin 20 MG Tab PO SCH (20:42)
[2022-11-07] MEDS: lamoTRIgine 100 MG Tab PO SCH (20:54)
[2022-11-07] MEDS: Melatonin 3 MG Tab PO SCH (20:55)
[2022-11-08] MEDS: Pantoprazole 40 MG Tab.CR PO SCH (05:20)
[2022-11-08] MEDS: Levothyroxine 50 MCG Tab PO SCH (05:20)
[2022-11-08] MEDS: metFORMIN 500 MG Tab PO SCH ×2 (07:51→18:07)
[2022-11-08] MEDS: Acetaminophen 500 MG Tab PO SCH ×3 (08:01→20:14)
[2022-11-08] MEDS: Vitamin B Complex with Vitamin C Tab PO SCH (08:02)
[2022-11-08] MEDS: Magnesium Chloride 64 MG Tab.ER PO SCH (08:02)
[2022-11-08] MEDS: Multivitamins with Iron/Calcium/Folic Acid/Minerals Tab PO SCH (08:03)
[2022-11-08] MEDS: Naproxen 500 MG Tab PO SCH ×2 (08:04→20:13)
[2022-11-08] MEDS: Cranberry 500 MG Cap PO SCH (08:04)
[2022-11-08] MEDS: Calcium Carbonate 500 MG Tablet PO SCH ×2 (08:05→20:13)
[2022-11-08] MEDS: Furosemide 20 MG Tab PO SCH (08:05)
[2022-11-08] MEDS: Mirabegron 25 MG Tab Extended Release PO SCH (08:06)
[2022-11-08] MEDS: busPIRone 15 MG Tab PO SCH ×2 (08:06→20:13)
[2022-11-08] MEDS: Menthol/Zinc Oxide Ointment 113 GM Tube TOP SCH ×2 (08:07→20:11)
[2022-11-08] MEDS: Carboxymethylcellulose Sodium 0.5% Ophth Soln 15 ML Bottle EYEBOTH SCH ×4 (08:07→20:12)
[2022-11-08] MEDS: Diclofenac Sodium 1% Gel 100 GM Tube TOP SCH ×4 (08:07→20:18)
[2022-11-08] MEDS: Ketotifen 0.025% Ophth Soln 5 ML Bottle EYEBOTH SCH ×2 (08:07→20:12)
[2022-11-08] MEDS: Metoprolol Succinate 25 MG Tab.ER PO SCH ×2 (08:12→20:27)
[2022-11-08] MEDS: Lisinopril 2.5 MG Tab PO SCH (08:13)
[2022-11-08] MEDS: Diltiazem 180 MG Cap.CD PO SCH (08:13)
[2022-11-08] MEDS: Warfarin 5 MG Tab PO SCH (16:25)
[2022-11-08] MEDS: Pravastatin 20 MG Tab PO SCH (20:13)
[2022-11-08] MEDS: lamoTRIgine 100 MG Tab PO SCH (20:14)
[2022-11-08] MEDS: Melatonin 3 MG Tab PO SCH (20:18)
[2022-11-08] MEDS: Gabapentin 300 MG Cap PO SCH (20:38)
[2022-11-09] MEDS: oxyCODONE 5 MG Tab PO PRN (05:38)
[2022-11-09] MEDS: Levothyroxine 50 MCG Tab PO SCH (05:38)
[2022-11-09] MEDS: Pantoprazole 40 MG Tab.CR PO SCH (05:38)
[2022-11-09 06:50] LABS: INR 2.44 (1.00-1.24); PROTHROMBIN TIME 24.5 sec (9.0-11.1)
[2022-11-09] MEDS: metFORMIN 500 MG Tab PO SCH ×2 (07:45→17:12)
[2022-11-09] MEDS: busPIRone 15 MG Tab PO SCH ×2 (08:12→20:26)
[2022-11-09] MEDS: Metoprolol Succinate 25 MG Tab.ER PO SCH ×2 (08:13→20:25)
[2022-11-09] MEDS: Lisinopril 2.5 MG Tab PO SCH (08:13)
[2022-11-09] MEDS: Acetaminophen 500 MG Tab PO SCH ×3 (08:13→20:26)
[2022-11-09] MEDS: Carboxymethylcellulose Sodium 0.5% Ophth Soln 15 ML Bottle EYEBOTH SCH ×4 (08:14→20:27)
[2022-11-09] MEDS: Ketotifen 0.025% Ophth Soln 5 ML Bottle EYEBOTH SCH ×2 (08:14→20:27)
[2022-11-09] MEDS: Calcium Carbonate 500 MG Tablet PO SCH ×2 (08:14→20:25)
[2022-11-09] MEDS: Menthol/Zinc Oxide Ointment 113 GM Tube TOP SCH ×2 (08:14→20:27)
[2022-11-09] MEDS: Vitamin B Complex with Vitamin C Tab PO SCH (08:14)
[2022-11-09] MEDS: Multivitamins with Iron/Calcium/Folic Acid/Minerals Tab PO SCH (08:14)
[2022-11-09] MEDS: Magnesium Chloride 64 MG Tab.ER PO SCH (08:14)
[2022-11-09] MEDS: Naproxen 500 MG Tab PO SCH ×2 (08:14→20:28)
[2022-11-09] MEDS: Diltiazem 180 MG Cap.CD PO SCH (08:14)
[2022-11-09] MEDS: Mirabegron 25 MG Tab Extended Release PO SCH (08:14)
[2022-11-09] MEDS: Diclofenac Sodium 1% Gel 100 GM Tube TOP SCH ×4 (08:15→20:26)
[2022-11-09] MEDS: Cranberry 500 MG Cap PO SCH (10:54)
[2022-11-09] MEDS: Furosemide 20 MG Tab PO SCH (10:54)
[2022-11-09] MEDS: Warfarin 5 MG, Warfarin 2.5 MG PO SCH ×2 (16:24)
[2022-11-09] MEDS: lamoTRIgine 100 MG Tab PO SCH (20:25)
[2022-11-09] MEDS: Pravastatin 20 MG Tab PO SCH (20:25)
[2022-11-09] MEDS: Melatonin 3 MG Tab PO SCH (20:26)
[2022-11-09] MEDS: Gabapentin 300 MG Cap PO SCH (20:32)
[2022-11-10] MEDS: Levothyroxine 50 MCG Tab PO SCH (05:23)
[2022-11-10] MEDS: Pantoprazole 40 MG Tab.CR PO SCH (05:24)
[2022-11-10] MEDS: metFORMIN 500 MG Tab PO SCH ×2 (07:59→17:29)
[2022-11-10] MEDS: Menthol/Zinc Oxide Ointment 113 GM Tube TOP SCH ×2 (08:00→21:16)
[2022-11-10] MEDS: Diclofenac Sodium 1% Gel 100 GM Tube TOP SCH ×4 (08:00→21:25)
[2022-11-10] MEDS: Furosemide 20 MG Tab PO SCH (08:01)
[2022-11-10] MEDS: Carboxymethylcellulose Sodium 0.5% Ophth Soln 15 ML Bottle EYEBOTH SCH ×4 (08:01→21:22)
[2022-11-10] MEDS: Ketotifen 0.025% Ophth Soln 5 ML Bottle EYEBOTH SCH ×2 (08:01→21:15)
[2022-11-10] MEDS: Vitamin B Complex with Vitamin C Tab PO SCH (08:01)
[2022-11-10] MEDS: busPIRone 15 MG Tab PO SCH ×2 (08:01→21:14)
[2022-11-10] MEDS: Diltiazem 180 MG Cap.CD PO SCH (08:01)
[2022-11-10] MEDS: Calcium Carbonate 500 MG Tablet PO SCH ×2 (08:01→21:21)
[2022-11-10] MEDS: Cranberry 500 MG Cap PO SCH (08:02)
[2022-11-10] MEDS: Acetaminophen 500 MG Tab PO SCH ×3 (08:02→21:24)
[2022-11-10] MEDS: Lisinopril 2.5 MG Tab PO SCH (08:02)
[2022-11-10] MEDS: Magnesium Chloride 64 MG Tab.ER PO SCH (08:04)
[2022-11-10] MEDS: Metoprolol Succinate 25 MG Tab.ER PO SCH ×2 (08:04→21:31)
[2022-11-10] MEDS: Mirabegron 25 MG Tab Extended Release PO SCH (08:04)
[2022-11-10] MEDS: Multivitamins with Iron/Calcium/Folic Acid/Minerals Tab PO SCH (08:05)
[2022-11-10] MEDS ORDERED: Naproxen 500 MG Tab PO PRN (09:00)
[2022-11-10] MEDS: Warfarin 5 MG Tab PO SCH (16:27)
[2022-11-10] MEDS: lamoTRIgine 100 MG Tab PO SCH (21:18)
[2022-11-10] MEDS: Melatonin 3 MG Tab PO SCH (21:20)
[2022-11-10] MEDS: Pravastatin 20 MG Tab PO SCH (21:22)
[2022-11-10] MEDS: Gabapentin 300 MG Cap PO SCH (21:38)
[2022-11-11] MEDS: Pantoprazole 40 MG Tab.CR PO SCH (05:44)
[2022-11-11] MEDS: Levothyroxine 50 MCG Tab PO SCH (05:44)
[2022-11-11 06:54] LABS: INR 2.11 (1.00-1.24); PROTHROMBIN TIME 21.2 sec (9.0-11.1)
[2022-11-11] MEDS: Calcium Carbonate 500 MG Tablet PO SCH ×2 (08:45→21:53)
[2022-11-11] MEDS: metFORMIN 500 MG Tab PO SCH ×2 (08:45→17:59)
[2022-11-11] MEDS: Cranberry 500 MG Cap PO SCH (08:45)
[2022-11-11] MEDS: Lisinopril 2.5 MG Tab PO SCH (08:46)
[2022-11-11] MEDS: Multivitamins with Iron/Calcium/Folic Acid/Minerals Tab PO SCH (08:46)
[2022-11-11] MEDS: Metoprolol Succinate 25 MG Tab.ER PO SCH ×2 (08:46→22:16)
[2022-11-11] MEDS: Diltiazem 180 MG Cap.CD PO SCH (08:46)
[2022-11-11] MEDS: Mirabegron 25 MG Tab Extended Release PO SCH (08:46)
[2022-11-11] MEDS: Vitamin B Complex with Vitamin C Tab PO SCH (08:47)
[2022-11-11] MEDS: Carboxymethylcellulose Sodium 0.5% Ophth Soln 15 ML Bottle EYEBOTH SCH ×4 (08:47→21:50)
[2022-11-11] MEDS: Ketotifen 0.025% Ophth Soln 5 ML Bottle EYEBOTH SCH ×2 (08:47→21:54)
[2022-11-11] MEDS: busPIRone 15 MG Tab PO SCH ×2 (08:47→21:51)
[2022-11-11] MEDS: Furosemide 20 MG Tab PO SCH (08:47)
[2022-11-11] MEDS: Magnesium Chloride 64 MG Tab.ER PO SCH (08:48)
[2022-11-11] MEDS: Menthol/Zinc Oxide Ointment 113 GM Tube TOP SCH ×2 (08:51→21:54)
[2022-11-11] MEDS: Acetaminophen 500 MG Tab PO SCH ×3 (08:51→21:50)
[2022-11-11] MEDS: Diclofenac Sodium 1% Gel 100 GM Tube TOP SCH ×4 (08:52→21:52)
[2022-11-11] MEDS: oxyCODONE 5 MG Tab PO PRN (13:23)
[2022-11-11] MEDS: Warfarin 5 MG, Warfarin 2.5 MG PO SCH ×2 (16:13)
[2022-11-11] MEDS: Gabapentin 300 MG Cap PO SCH (21:50)
[2022-11-11] MEDS: lamoTRIgine 100 MG Tab PO SCH (21:53)
[2022-11-11] MEDS: Melatonin 3 MG Tab PO SCH (21:55)
[2022-11-11] MEDS: Pravastatin 20 MG Tab PO SCH (22:16)
[2022-11-12] MEDS: Pantoprazole 40 MG Tab.CR PO SCH (05:43)
[2022-11-12] MEDS: Levothyroxine 50 MCG Tab PO SCH (05:43)
[2022-11-12] MEDS: metFORMIN 500 MG Tab PO SCH ×2 (08:18→18:11)
[2022-11-12] MEDS: Cranberry 500 MG Cap PO SCH (08:18)
[2022-11-12] MEDS: Multivitamins with Iron/Calcium/Folic Acid/Minerals Tab PO SCH (08:18)
[2022-11-12] MEDS: Acetaminophen 500 MG Tab PO SCH ×3 (08:19→20:29)
[2022-11-12] MEDS: Diltiazem 180 MG Cap.CD PO SCH (08:19)
[2022-11-12] MEDS: Diclofenac Sodium 1% Gel 100 GM Tube TOP SCH ×4 (08:20→20:42)
[2022-11-12] MEDS: busPIRone 15 MG Tab PO SCH ×2 (08:20→20:29)
[2022-11-12] MEDS: Vitamin B Complex with Vitamin C Tab PO SCH (08:21)
[2022-11-12] MEDS: Furosemide 20 MG Tab PO SCH (08:21)
[2022-11-12] MEDS: Mirabegron 25 MG Tab Extended Release PO SCH (08:21)
[2022-11-12] MEDS: Metoprolol Succinate 25 MG Tab.ER PO SCH ×2 (08:21→20:30)
[2022-11-12] MEDS: Calcium Carbonate 500 MG Tablet PO SCH ×2 (08:21→20:34)
[2022-11-12] MEDS: Ketotifen 0.025% Ophth Soln 5 ML Bottle EYEBOTH SCH ×2 (08:21→20:28)
[2022-11-12] MEDS: Magnesium Chloride 64 MG Tab.ER PO SCH (08:22)
[2022-11-12] MEDS: Carboxymethylcellulose Sodium 0.5% Ophth Soln 15 ML Bottle EYEBOTH SCH ×4 (08:22→20:28)
[2022-11-12] MEDS: Lisinopril 2.5 MG Tab PO SCH (08:22)
[2022-11-12] MEDS: Menthol/Zinc Oxide Ointment 113 GM Tube TOP SCH ×2 (08:23→20:30)
[2022-11-12] MEDS: Warfarin 5 MG Tab PO SCH (16:55)
[2022-11-12] MEDS: Gabapentin 300 MG Cap PO SCH (20:28)
[2022-11-12] MEDS: lamoTRIgine 100 MG Tab PO SCH (20:29)
[2022-11-12] MEDS: Pravastatin 20 MG Tab PO SCH (20:29)
[2022-11-12] MEDS: Melatonin 3 MG Tab PO SCH (20:33)
[2022-11-13] MEDS: Levothyroxine 50 MCG Tab PO SCH (05:14)
[2022-11-13] MEDS: Pantoprazole 40 MG Tab.CR PO SCH (05:14)
[2022-11-13 06:48] LABS: INR 2.22 (1.00-1.24); PROTHROMBIN TIME 22.4 sec (9.0-11.1)
[2022-11-13] MEDS: metFORMIN 500 MG Tab PO SCH (09:01)
[2022-11-13] MEDS: busPIRone 15 MG Tab PO SCH (09:02)
[2022-11-13] MEDS: Magnesium Chloride 64 MG Tab.ER PO SCH (09:02)
[2022-11-13] MEDS: Diclofenac Sodium 1% Gel 100 GM Tube TOP SCH ×2 (09:02→12:14)
[2022-11-13] MEDS: Menthol/Zinc Oxide Ointment 113 GM Tube TOP SCH (09:02)
[2022-11-13] MEDS: Ketotifen 0.025% Ophth Soln 5 ML Bottle EYEBOTH SCH (09:03)
[2022-11-13] MEDS: Multivitamins with Iron/Calcium/Folic Acid/Minerals Tab PO SCH (09:03)
[2022-11-13] MEDS: Carboxymethylcellulose Sodium 0.5% Ophth Soln 15 ML Bottle EYEBOTH SCH ×2 (09:03→12:14)
[2022-11-13] MEDS: Mirabegron 25 MG Tab Extended Release PO SCH (09:03)
[2022-11-13] MEDS: Calcium Carbonate 500 MG Tablet PO SCH (09:04)
[2022-11-13] MEDS: Furosemide 20 MG Tab PO SCH (09:05)
[2022-11-13] MEDS: Cranberry 500 MG Cap PO SCH (09:05)
[2022-11-13] MEDS: Acetaminophen 500 MG Tab PO SCH (09:05)
[2022-11-13] MEDS: Vitamin B Complex with Vitamin C Tab PO SCH (09:05)
[2022-11-13] MEDS: Diltiazem 180 MG Cap.CD PO SCH (09:06)
[2022-11-13] MEDS: Metoprolol Succinate 25 MG Tab.ER PO SCH (09:06)
[2022-11-13] MEDS: Lisinopril 2.5 MG Tab PO SCH (10:30)
[2022-11-13 13:51] VITALS: BP 140/62; PULSE 66
== END 2022-11-13 12:35 | disposition home or self-care (01) | DRG 556 ==
LOC: FB.MS 10:00
PROVIDERS: ADMIT Family Medicine; ATTEND Student in an Organized Health Care Education/Training Program
DX: R26.2 Difficulty in walking, not elsewhere classified (principal); I48.11 Longstanding persistent atrial fibrillation; M16.11 Unilateral primary osteoarthritis, right hip; F32.9 Major depressive disorder, single episode, unspecified; Z96.651 Presence of right artificial knee joint; Z66 Do not resuscitate; Z20.822 Contact with and (suspected) exposure to COVID-19; I10 Essential (primary) hypertension; E78.00 Pure hypercholesterolemia, unspecified; E03.9 Hypothyroidism, unspecified; E11.40 Type 2 diabetes mellitus with diabetic neuropathy, unspecified; Z90.710 Acquired absence of both cervix and uterus; Z79.01 Long term (current) use of anticoagulants; Z86.73 Personal history of transient ischemic attack (TIA), and cerebral infarction without residual deficits; Z79.84 Long term (current) use of oral hypoglycemic drugs; Z79.890 Hormone replacement therapy; Z79.899 Other long term (current) drug therapy
CPT/HCPCS: 36415; 82947; 85610; 97116-GP; 97530-GO; 97535-GO; 99305; 99316; A9270-GY; U0002

== ENCOUNTER 2023-05-07 04:23 | Inpatient (IN) | payer MEDICARE ==
[2023-05-07 05:12] LABS: BASOPHILS PERCENT AUTO 0.6 % (0.2-1.5); EOSINOPHILS ABSOLUTE AUTO 0.1 x10-3/uL (0.0-0.8); EOSINOPHILS PERCENT AUTO 1.4 % (0.6-8.1); HEMATOCRIT 39.5 % (34.2-48.2); LYMPHOCYTES ABSOLUTE AUTO 1.4 x10-3/uL (1.0-4.4); LYMPHOCYTES PERCENT AUTO 23.2 % (18.4-52.1); MEAN CORPUSCULAR HEMOGLOBIN 31.8 pg (23.9-33.9); MEAN CORPUSCULAR HGB CONC 32.9 g/dL (31.9-34.8); MEAN CORPUSCULAR VOLUME 96.9 fL (76.7-100.5); MEAN PLATELET VOLUME 6.9 fL (7.1-12.4); MONOCYTES ABSOLUTE AUTO 0.5 x10-3/uL (0.3-1.0); MONOCYTES PERCENT AUTO 8.5 % (4.4-15.7); NEUTROPHILS ABSOLUTE AUTO 3.9 x10-3/uL (1.5-6.3); NEUTROPHILS PERCENT AUTO 66.3 % (30.8-76.2); PLATELET COUNT,PLT 301 x10(3)uL (151-488); RED BLOOD CELL COUNT 4.08 x10(6)uL (3.60-5.20); RED CELL DISTRIBUTION WIDTH 16.1 % (12.3-16.5); WHITE BLOOD CELL COUNT,WBC 5.9 x10-3/uL (3.0-10.3)
[2023-05-07 05:19] LABS: BLOOD UREA NITROGEN,BUN 37 mg/dL (7-18); BUN/CREATININE RATIO 33.6 (9-20); CALCIUM 9.8 mg/dL (8.6-10.2); CARBON DIOXIDE,CO2 29 mmol/L (21-32); CHLORIDE,CL 110 mmol/L (100-110); CREATININE 1.1 mg/dL (0.55-1.02); EST CRCL DRUG DOSING (CG) 37.32 mL/min; ESTIMATED GFR 51 mL/min (>60); GLUCOSE RANDOM 117 mg/dL (80-116); POTASSIUM,K 4.2 mmol/L (3.5-5.3); SODIUM,NA 147 mmol/L (135-145)
[2023-05-07 05:29] LABS: LACTIC ACID 0.9 mmol/L (0.4-2.0)
[2023-05-07 05:30] LABS: A/G RATIO 0.9; ALANINE AMINOTRANSFERASE,ALT 18 U/L (12-36); ALBUMIN 3.2 g/dL (3.2-4.6); ALKALINE PHOSPHATASE 65 IU/L (56-112); ASPARTATE AMNIOTRANSFERASE,AST 18 IU/L (5-25); BILIRUBIN TOTAL 0.2 mg/dL (0.1-1.3); PROTEIN TOTAL,TP 6.9 g/dL (6.0-8.0)
[2023-05-07 05:38] LABS: BILIRUBIN,URINE NEGATIVE (NEGATIVE); GLUCOSE,URINE NORMAL (NORMAL); KETONES,URINE NEGATIVE (NEGATIVE); LEUKOCYTE ESTERASE,URINE MODERATE (NEGATIVE); NITRITE,URINE NEGATIVE (NEGATIVE); OCCULT BLOOD,URINE MODERATE (NEGATIVE); PROTEIN,URINE TRACE mg/dL (NEGATIVE); UROBILINOGEN,URINE NORMAL (NEGATIVE)
[2023-05-07 05:47] LABS: APPEARANCE,URINE SLIGHTLY CLOUDY (CLEAR); COLOR,URINE YELLOW (YELLOW); RBC,URINE 0-5 (0-5); SQUAMOUS EPITHELIAL CELLS,UR FEW (NS,R,O)
[2023-05-07 05:48] LABS: BACTERIA,URINE MODERATE (NS)
[2023-05-07] MEDS ORDERED: Ciprofloxacin 500 MG Tab PO ONE (08:11)
[2023-05-07 08:53] LABS: INR 6.72 (1.00-1.24); PROTHROMBIN TIME 72.7 sec (9.0-11.1)
[2023-05-07] MEDS ORDERED: Ondansetron 4 MG/2 ML SDV IV PRN (09:13)
[2023-05-07] MEDS ORDERED: Glucagon,Human Recombinant 1 MG Vial IM PRN (12:00)
[2023-05-07] MEDS ORDERED: 50% Dextrose in Water 50 ML Syringe IVPUSH PRN (12:00)
[2023-05-07] MEDS: Insulin Lispro 100 Unit/ML 3 ML KwikPen SUBCUT SCH ×2 (12:13→17:21)
[2023-05-07] MEDS ORDERED: Insulin Lispro 100 Unit/ML 3 ML KwikPen SUBCUT ONE (17:20)
[2023-05-07] MEDS ORDERED: Loperamide 2 MG Cap PO PRN (17:47)
[2023-05-07] MEDS ORDERED: Nystatin Topical Powder 15 GM Bottle TOP PRN (17:47)
[2023-05-07] MEDS ORDERED: Polyethylene Glycol 3350 Powder 17 GM Packet PO PRN (17:47)
[2023-05-07] MEDS ORDERED: Furosemide 20 MG Tab PO SCH (18:00)
[2023-05-07] MEDS: Naproxen 500 MG Tab PO SCH (20:00)
[2023-05-07] MEDS ORDERED: metFORMIN 500 MG Tab PO SCH (21:00)
[2023-05-07] MEDS: busPIRone 15 MG Tab PO SCH (21:01)
[2023-05-07] MEDS: Diclofenac Sodium 1% Gel 100 GM Tube TOP SCH (21:01)
[2023-05-07] MEDS: lamoTRIgine 100 MG Tab PO SCH (21:02)
[2023-05-07] MEDS: Acetaminophen 500 MG Tab PO SCH (21:02)
[2023-05-07] MEDS: Pravastatin 20 MG Tab PO SCH (21:02)
[2023-05-07] MEDS: Melatonin 3 MG Tab PO SCH (21:02)
[2023-05-07] MEDS: Gabapentin 300 MG Cap PO SCH (21:02)
[2023-05-07] MEDS: Menthol/Zinc Oxide Ointment 113 GM Tube TOP SCH (21:02)
[2023-05-07] MEDS: Metoprolol Succinate 25 MG Tab.ER PO SCH (21:02)
[2023-05-08] MEDS: Levothyroxine 50 MCG Tab PO SCH (05:30)
[2023-05-08] MEDS: Naproxen 500 MG Tab PO SCH ×2 (05:30→18:20)
[2023-05-08 07:13] LABS: BASOPHILS ABSOLUTE AUTO 0.1 x10-3/uL (0.0-0.1); BASOPHILS PERCENT AUTO 0.7 % (0.2-1.5); EOSINOPHILS ABSOLUTE AUTO 0.2 x10-3/uL (0.0-0.8); EOSINOPHILS PERCENT AUTO 2.2 % (0.6-8.1); HEMATOCRIT 38.4 % (34.2-48.2); HEMOGLOBIN 12.6 g/dL (11.4-15.5); LYMPHOCYTES ABSOLUTE AUTO 1.4 x10-3/uL (1.0-4.4); LYMPHOCYTES PERCENT AUTO 19.6 % (18.4-52.1); MEAN CORPUSCULAR HEMOGLOBIN 32.1 pg (23.9-33.9); MEAN CORPUSCULAR HGB CONC 32.8 g/dL (31.9-34.8); MEAN CORPUSCULAR VOLUME 97.9 fL (76.7-100.5); MEAN PLATELET VOLUME 7.2 fL (7.1-12.4); MONOCYTES ABSOLUTE AUTO 0.6 x10-3/uL (0.3-1.0); MONOCYTES PERCENT AUTO 8.7 % (4.4-15.7); NEUTROPHILS ABSOLUTE AUTO 4.9 x10-3/uL (1.5-6.3); NEUTROPHILS PERCENT AUTO 68.8 % (30.8-76.2); PLATELET COUNT,PLT 290 x10(3)uL (151-488); RED BLOOD CELL COUNT 3.92 x10(6)uL (3.60-5.20); RED CELL DISTRIBUTION WIDTH 16.3 % (12.3-16.5); WHITE BLOOD CELL COUNT,WBC 7.1 x10-3/uL (3.0-10.3)
[2023-05-08 07:24] LABS: A/G RATIO 0.9; ALANINE AMINOTRANSFERASE,ALT 21 U/L (12-36); ALBUMIN 3.1 g/dL (3.2-4.6); ALKALINE PHOSPHATASE 58 IU/L (56-112); ASPARTATE AMNIOTRANSFERASE,AST 20 IU/L (5-25); BILIRUBIN TOTAL 0.3 mg/dL (0.1-1.3); BLOOD UREA NITROGEN,BUN 45 mg/dL (7-18); BUN/CREATININE RATIO 37.5 (9-20); CALCIUM 9.6 mg/dL (8.6-10.2); CARBON DIOXIDE,CO2 32 mmol/L (21-32); CHLORIDE,CL 109 mmol/L (100-110); CREATININE 1.2 mg/dL (0.55-1.02); ESTIMATED GFR 46 mL/min (>60); GLUCOSE RANDOM 118 mg/dL (80-116); POTASSIUM,K 4.6 mmol/L (3.5-5.3); PROTEIN TOTAL,TP 6.4 g/dL (6.0-8.0); SODIUM,NA 144 mmol/L (135-145)
[2023-05-08 07:35] LABS: PROTHROMBIN TIME 44.4 sec (9.0-11.1)
[2023-05-08 07:36] LABS: INR 4.5 (1.00-1.24)
[2023-05-08] MEDS: Insulin Lispro 100 Unit/ML 3 ML KwikPen SUBCUT SCH ×3 (08:36→18:16)
[2023-05-08] MEDS: Magnesium Chloride 64 MG Tab.ER PO SCH (08:37)
[2023-05-08] MEDS: busPIRone 15 MG Tab PO SCH ×2 (08:37→21:26)
[2023-05-08] MEDS: metFORMIN 500 MG Tab PO SCH ×2 (08:37→17:42)
[2023-05-08] MEDS: Mirabegron 25 MG Tab Extended Release PO SCH (08:38)
[2023-05-08] MEDS: Acetaminophen 500 MG Tab PO SCH ×3 (08:38→21:28)
[2023-05-08] MEDS: Multivitamin Tab PO SCH (08:38)
[2023-05-08] MEDS: Furosemide 20 MG Tab PO SCH (08:38)
[2023-05-08] MEDS: Lisinopril 2.5 MG Tab PO SCH (08:38)
[2023-05-08] MEDS: Metoprolol Succinate 25 MG Tab.ER PO SCH ×2 (08:38→21:33)
[2023-05-08] MEDS: Ketotifen 0.025% Ophth Soln 5 ML Bottle EYEBOTH SCH ×2 (08:39→21:31)
[2023-05-08] MEDS: Diltiazem 180 MG Cap.CD PO SCH (08:39)
[2023-05-08] MEDS: Vitamin B Complex with Vitamin C Tab PO SCH (08:39)
[2023-05-08] MEDS: Cranberry 500 MG Cap PO SCH (08:39)
[2023-05-08] MEDS: Diclofenac Sodium 1% Gel 100 GM Tube TOP SCH ×4 (08:40→21:28)
[2023-05-08] MEDS: Menthol/Zinc Oxide Ointment 113 GM Tube TOP SCH ×2 (08:41→21:32)
[2023-05-08] MEDS ORDERED: Warfarin Sliding Scale PO SCH (09:45)
[2023-05-08] MEDS: Carboxymethylcellulose Sodium 0.5% Ophth Soln 15 ML Bottle EYEBOTH SCH ×2 (10:20→21:29)
[2023-05-08] MEDS: Ciprofloxacin 250 MG Tab PO SCH ×2 (10:21→21:28)
[2023-05-08] MEDS: Pravastatin 20 MG Tab PO SCH (21:30)
[2023-05-08] MEDS: Melatonin 3 MG Tab PO SCH (21:30)
[2023-05-08] MEDS: Gabapentin 300 MG Cap PO SCH (21:31)
[2023-05-08] MEDS: lamoTRIgine 100 MG Tab PO SCH (21:31)
[2023-05-09] MEDS: Levothyroxine 50 MCG Tab PO SCH (05:37)
[2023-05-09] MEDS: Naproxen 500 MG Tab PO SCH ×2 (05:37→18:50)
[2023-05-09 07:05] LABS: BLOOD UREA NITROGEN,BUN 69 mg/dL (7-18); CALCIUM 9.6 mg/dL (8.6-10.2); CARBON DIOXIDE,CO2 27 mmol/L (21-32); CHLORIDE,CL 106 mmol/L (100-110); EST CRCL DRUG DOSING (CG) 32.77 mL/min; ESTIMATED GFR 57 mL/min (>60); GLUCOSE RANDOM 111 mg/dL (80-116); INR 2.92 (1.00-1.24); POTASSIUM,K 4.4 mmol/L (3.5-5.3); PROTHROMBIN TIME 29.1 sec (9.0-11.1); SODIUM,NA 140 mmol/L (135-145)
[2023-05-09] MEDS: metFORMIN 500 MG Tab PO SCH ×2 (08:16→17:58)
[2023-05-09] MEDS: Insulin Lispro 100 Unit/ML 3 ML KwikPen SUBCUT SCH ×3 (08:16→18:44)
[2023-05-09] MEDS: Acetaminophen 500 MG Tab PO SCH ×3 (08:17→21:33)
[2023-05-09] MEDS: Cranberry 500 MG Cap PO SCH (08:17)
[2023-05-09] MEDS: Lisinopril 2.5 MG Tab PO SCH (08:18)
[2023-05-09] MEDS: Metoprolol Succinate 25 MG Tab.ER PO SCH ×2 (08:18→21:31)
[2023-05-09] MEDS: Vitamin B Complex with Vitamin C Tab PO SCH (08:19)
[2023-05-09] MEDS: busPIRone 15 MG Tab PO SCH ×2 (08:19→21:28)
[2023-05-09] MEDS: Diltiazem 180 MG Cap.CD PO SCH (08:19)
[2023-05-09] MEDS: Multivitamin Tab PO SCH (08:19)
[2023-05-09] MEDS: Ciprofloxacin 250 MG Tab PO SCH ×2 (08:20→21:29)
[2023-05-09] MEDS: Magnesium Chloride 64 MG Tab.ER PO SCH (08:20)
[2023-05-09] MEDS: Mirabegron 25 MG Tab Extended Release PO SCH (08:20)
[2023-05-09] MEDS: Carboxymethylcellulose Sodium 0.5% Ophth Soln 15 ML Bottle EYEBOTH SCH ×2 (08:21→21:31)
[2023-05-09] MEDS: Ketotifen 0.025% Ophth Soln 5 ML Bottle EYEBOTH SCH ×2 (08:21→21:29)
[2023-05-09] MEDS: Diclofenac Sodium 1% Gel 100 GM Tube TOP SCH ×4 (08:22→21:34)
[2023-05-09] MEDS: Menthol/Zinc Oxide Ointment 113 GM Tube TOP SCH ×2 (08:22→21:29)
[2023-05-09] MEDS ORDERED: Warfarin 2.5 MG Tab PO SCH (16:00)
[2023-05-09] MEDS: Melatonin 3 MG Tab PO SCH (21:30)
[2023-05-09] MEDS: lamoTRIgine 100 MG Tab PO SCH (21:30)
[2023-05-09] MEDS: Pravastatin 20 MG Tab PO SCH (21:31)
[2023-05-09] MEDS: Gabapentin 300 MG Cap PO SCH (21:37)
[2023-05-10] MEDS: Levothyroxine 50 MCG Tab PO SCH (05:23)
[2023-05-10] MEDS: Naproxen 500 MG Tab PO SCH (05:23)
[2023-05-10] MEDS ORDERED: Ondansetron 4 MG Tab.DIS PO PRN (06:08)
[2023-05-10] MEDS: Insulin Lispro 100 Unit/ML 3 ML KwikPen SUBCUT SCH ×3 (08:00→18:28)
[2023-05-10 08:04] LABS: HEMATOCRIT 30.9 % (34.2-48.2); HEMOGLOBIN 10.1 g/dL (11.4-15.5); MEAN CORPUSCULAR HEMOGLOBIN 31.6 pg (23.9-33.9); MEAN CORPUSCULAR HGB CONC 32.5 g/dL (31.9-34.8); MEAN CORPUSCULAR VOLUME 97.2 fL (76.7-100.5); MEAN PLATELET VOLUME 7.5 fL (7.1-12.4); PLATELET COUNT,PLT 336 x10(3)uL (151-488); RED BLOOD CELL COUNT 3.18 x10(6)uL (3.60-5.20); RED CELL DISTRIBUTION WIDTH 16.1 % (12.3-16.5); WHITE BLOOD CELL COUNT,WBC 15.9 x10-3/uL (3.0-10.3)
[2023-05-10 08:05] LABS: BLOOD UREA NITROGEN,BUN 96 mg/dL (7-18); CARBON DIOXIDE,CO2 24 mmol/L (21-32); CHLORIDE,CL 104 mmol/L (100-110); CREATININE 1.3 mg/dL (0.55-1.02); ESTIMATED GFR 42 mL/min (>60); GLUCOSE RANDOM 133 mg/dL (80-116); SODIUM,NA 136 mmol/L (135-145)
[2023-05-10 08:06] LABS: INR 2.57 (1.00-1.24); PROTHROMBIN TIME 25.8 sec (9.0-11.1)
[2023-05-10 08:09] LABS: BUN/CREATININE RATIO 73.8 (9-20)
[2023-05-10 08:10] LABS: CALCIUM 9.6 mg/dL (8.6-10.2)
[2023-05-10 08:15] LABS: LYMPHOCYTES PERCENT MAN 13 % (13-37); MONOCYTES PERCENT MAN 5 % (4-12); SEG NEUTROPHILS PERCENT MAN 82 % (46-82)
[2023-05-10] MEDS: Diclofenac Sodium 1% Gel 100 GM Tube TOP SCH ×5 (09:59→21:39)
[2023-05-10] MEDS ORDERED: Diclofenac Sodium 1% Gel 100 GM Tube TOP PRN (10:08)
[2023-05-10] MEDS: Furosemide 20 MG Tab PO SCH (10:10)
[2023-05-10] MEDS: Lisinopril 2.5 MG Tab PO SCH (10:10)
[2023-05-10] MEDS: Metoprolol Succinate 25 MG Tab.ER PO SCH (10:12)
[2023-05-10] MEDS: busPIRone 15 MG Tab PO SCH ×2 (10:23→21:32)
[2023-05-10] MEDS: Ciprofloxacin 250 MG Tab PO SCH ×2 (10:23→21:34)
[2023-05-10] MEDS: Diltiazem 180 MG Cap.CD PO SCH (10:23)
[2023-05-10] MEDS: metFORMIN 500 MG Tab PO SCH ×2 (10:23→18:13)
[2023-05-10] MEDS: Mirabegron 25 MG Tab Extended Release PO SCH (10:24)
[2023-05-10] MEDS: Vitamin B Complex with Vitamin C Tab PO SCH (10:24)
[2023-05-10] MEDS: Magnesium Chloride 64 MG Tab.ER PO SCH (10:24)
[2023-05-10] MEDS: Ketotifen 0.025% Ophth Soln 5 ML Bottle EYEBOTH SCH ×2 (10:25→21:34)
[2023-05-10] MEDS: Carboxymethylcellulose Sodium 0.5% Ophth Soln 15 ML Bottle EYEBOTH SCH ×2 (10:25→21:35)
[2023-05-10] MEDS: Cranberry 500 MG Cap PO SCH (10:26)
[2023-05-10] MEDS: Multivitamin Tab PO SCH (10:26)
[2023-05-10] MEDS: Menthol/Zinc Oxide Ointment 113 GM Tube TOP SCH ×2 (10:26→21:33)
[2023-05-10] MEDS: Acetaminophen 500 MG Tab PO SCH ×3 (10:26→21:36)
[2023-05-10] MEDS: Pantoprazole 40 MG Vial IVPUSH SCH (10:46)
[2023-05-10] MEDS: Sodium Chloride 0.9% 1,000 ML IV SCH ×2 (10:47→22:42)
[2023-05-10] MEDS ORDERED: Sodium Chloride 0.9% 10 ML Syringe FLUSH PRN (10:51)
[2023-05-10] MEDS ORDERED: Sodium Chloride 0.9% 250 ML IV SCH (11:20)
[2023-05-10 13:03] LABS: HEMATOCRIT 26.9 % (34.2-48.2); HEMOGLOBIN 8.9 g/dL (11.4-15.5)
[2023-05-10] MEDS ORDERED: Warfarin 5 MG Tab PO SCH (16:00)
[2023-05-10 16:37] LABS: HEMATOCRIT 24.7 % (34.2-48.2); HEMOGLOBIN 8.2 g/dL (11.4-15.5)
[2023-05-10 16:40] LABS: INR 2.17 (1.00-1.24); PROTHROMBIN TIME 21.8 sec (9.0-11.1)
[2023-05-10] MEDS: Iron Polysaccharides Complex 150 MG Cap PO SCH (17:07)
[2023-05-10] MEDS: Sucralfate 1 GM Tab PO SCH ×2 (17:07→21:43)
[2023-05-10] MEDS: Sodium Chloride 0.9% 250 ML IV SCH (18:20)
[2023-05-10 21:01] LABS: HEMATOCRIT 24.2 % (34.2-48.2); HEMOGLOBIN 7.8 g/dL (11.4-15.5)
[2023-05-10 21:06] LABS: INR 2.06 (1.00-1.24); PROTHROMBIN TIME 20.8 sec (9.0-11.1)
[2023-05-10] MEDS: Melatonin 3 MG Tab PO SCH (21:35)
[2023-05-10] MEDS: lamoTRIgine 100 MG Tab PO SCH (21:35)
[2023-05-10] MEDS: Pravastatin 20 MG Tab PO SCH (21:35)
[2023-05-10] MEDS: Gabapentin 300 MG Cap PO SCH (21:43)
[2023-05-10] MEDS ORDERED: traMADol 50 MG Tab PO PRN (21:47)
[2023-05-11] MEDS: Sodium Chloride 0.9% 250 ML IV SCH ×2 (00:01→02:17)
[2023-05-11] MEDS: Levothyroxine 50 MCG Tab PO SCH (06:35)
[2023-05-11] MEDS: Sucralfate 1 GM Tab PO SCH ×4 (06:35→21:24)
[2023-05-11] MEDS ORDERED: traMADol 50 MG Tab PO PRN (06:35)
[2023-05-11 06:53] LABS: HEMATOCRIT 31.5 % (34.2-48.2); HEMOGLOBIN 10.6 g/dL (11.4-15.5)
[2023-05-11 07:01] LABS: INR 2.16 (1.00-1.24); PROTHROMBIN TIME 21.7 sec (9.0-11.1)
[2023-05-11] MEDS ORDERED: Amoxicillin/Clavulanate K 500-125 MG Tab PO SCH (08:00)
[2023-05-11] MEDS: Acetaminophen 500 MG Tab PO SCH ×3 (08:14→21:27)
[2023-05-11] MEDS: Vitamin B Complex with Vitamin C Tab PO SCH (08:15)
[2023-05-11] MEDS: Cranberry 500 MG Cap PO SCH (08:16)
[2023-05-11] MEDS: Magnesium Chloride 64 MG Tab.ER PO SCH (08:16)
[2023-05-11] MEDS: Mirabegron 25 MG Tab Extended Release PO SCH (08:16)
[2023-05-11] MEDS: Diltiazem 180 MG Cap.CD PO SCH (08:16)
[2023-05-11] MEDS: busPIRone 15 MG Tab PO SCH ×2 (08:16→21:24)
[2023-05-11] MEDS: Menthol/Zinc Oxide Ointment 113 GM Tube TOP SCH ×2 (08:16→21:22)
[2023-05-11] MEDS: Multivitamin Tab PO SCH (08:16)
[2023-05-11] MEDS: Ketotifen 0.025% Ophth Soln 5 ML Bottle EYEBOTH SCH ×2 (08:18→21:24)
[2023-05-11] MEDS: Carboxymethylcellulose Sodium 0.5% Ophth Soln 15 ML Bottle EYEBOTH SCH ×2 (08:18→21:25)
[2023-05-11] MEDS: Lisinopril 2.5 MG Tab PO SCH (08:29)
[2023-05-11] MEDS: metFORMIN 500 MG Tab PO SCH ×2 (08:29→17:44)
[2023-05-11] MEDS: Insulin Lispro 100 Unit/ML 3 ML KwikPen SUBCUT SCH ×3 (08:30→17:45)
[2023-05-11] MEDS: Pantoprazole 40 MG Vial IVPUSH SCH (08:49)
[2023-05-11] MEDS: Iron Polysaccharides Complex 150 MG Cap PO SCH (08:49)
[2023-05-11] MEDS: Metoprolol Succinate 25 MG Tab.ER PO SCH ×2 (10:53→21:36)
[2023-05-11] MEDS ORDERED: Sodium Chloride 0.9% 250 ML IV SCH (13:42)
[2023-05-11 15:13] LABS: BILIRUBIN,URINE NEGATIVE (NEGATIVE); GLUCOSE,URINE NORMAL (NORMAL); KETONES,URINE NEGATIVE (NEGATIVE); LEUKOCYTE ESTERASE,URINE NEGATIVE (NEGATIVE); NITRITE,URINE NEGATIVE (NEGATIVE); OCCULT BLOOD,URINE NEGATIVE (NEGATIVE); PROTEIN,URINE NEGATIVE (NEGATIVE); UROBILINOGEN,URINE NORMAL (NEGATIVE)
[2023-05-11 15:18] LABS: APPEARANCE,URINE CLEAR (CLEAR); BACTERIA,URINE OCCASIONAL (NS); COLOR,URINE YELLOW (YELLOW); RBC,URINE 0-5 (0-5); SQUAMOUS EPITHELIAL CELLS,UR OCCASIONAL (NS,R,O); WBC,URINE 0-5 (0-5)
[2023-05-11 15:51] LABS: HEMATOCRIT 27.5 % (34.2-48.2); HEMOGLOBIN 9.4 g/dL (11.4-15.5)
[2023-05-11 15:57] LABS: INR 1.82 (1.00-1.24); PROTHROMBIN TIME 18.4 sec (9.0-11.1)
[2023-05-11] MEDS ORDERED: Sodium Chloride 0.9% 1,000 ML IV SCH (16:45)
[2023-05-11] MEDS ORDERED: Semaglutide [Ozempic] 1 MG/0.75 ML Pen.Injctr SQ SCH (20:00)
[2023-05-11] MEDS: Melatonin 3 MG Tab PO SCH (21:22)
[2023-05-11 21:24] LABS: HEMATOCRIT 28.9 % (34.2-48.2); HEMOGLOBIN 9.9 g/dL (11.4-15.5)
[2023-05-11] MEDS: Pravastatin 20 MG Tab PO SCH (21:25)
[2023-05-11] MEDS: lamoTRIgine 100 MG Tab PO SCH (21:25)
[2023-05-11] MEDS: Gabapentin 300 MG Cap PO SCH (21:32)
[2023-05-12] MEDS: Levothyroxine 50 MCG Tab PO SCH (05:28)
[2023-05-12 06:35] LABS: INR 1.28 (1.00-1.24); PROTHROMBIN TIME 13.1 sec (9.0-11.1)
[2023-05-12 07:29] LABS: BLOOD UREA NITROGEN,BUN 64 mg/dL (7-18); CALCIUM 10.3 mg/dL (8.6-10.2); CARBON DIOXIDE,CO2 23 mmol/L (21-32); CHLORIDE,CL 110 mmol/L (100-110); CREATININE 0.9 mg/dL (0.55-1.02); EST CRCL DRUG DOSING (CG) 36.41 mL/min; ESTIMATED GFR 65 mL/min (>60); GLUCOSE RANDOM 107 mg/dL (80-116); POTASSIUM,K 4.9 mmol/L (3.5-5.3); SODIUM,NA 142 mmol/L (135-145)
[2023-05-12 07:39] LABS: BASOPHILS ABSOLUTE AUTO 0.1 x10-3/uL (0.0-0.1); BASOPHILS PERCENT AUTO 0.6 % (0.2-1.5); EOSINOPHILS ABSOLUTE AUTO 0.2 x10-3/uL (0.0-0.8); EOSINOPHILS PERCENT AUTO 1.5 % (0.6-8.1); HEMATOCRIT 30.2 % (34.2-48.2); HEMOGLOBIN 10.1 g/dL (11.4-15.5); LYMPHOCYTES ABSOLUTE AUTO 1.7 x10-3/uL (1.0-4.4); LYMPHOCYTES PERCENT AUTO 17.1 % (18.4-52.1); MEAN CORPUSCULAR HGB CONC 33.5 g/dL (31.9-34.8); MEAN CORPUSCULAR VOLUME 95.7 fL (76.7-100.5); MEAN PLATELET VOLUME 7.9 fL (7.1-12.4); MONOCYTES ABSOLUTE AUTO 0.7 x10-3/uL (0.3-1.0); MONOCYTES PERCENT AUTO 6.8 % (4.4-15.7); NEUTROPHILS ABSOLUTE AUTO 7.5 x10-3/uL (1.5-6.3); PLATELET COUNT,PLT 247 x10(3)uL (151-488); RED BLOOD CELL COUNT 3.15 x10(6)uL (3.60-5.20); RED CELL DISTRIBUTION WIDTH 16.6 % (12.3-16.5); WHITE BLOOD CELL COUNT,WBC 10.1 x10-3/uL (3.0-10.3)
[2023-05-12 07:46] LABS: BUN/CREATININE RATIO 71.1 (9-20)
[2023-05-12] MEDS: metFORMIN 500 MG Tab PO SCH ×2 (07:51→17:17)
[2023-05-12] MEDS: Sucralfate 1 GM Tab PO SCH ×4 (07:52→20:34)
[2023-05-12] MEDS: Insulin Lispro 100 Unit/ML 3 ML KwikPen SUBCUT SCH ×3 (07:52→17:15)
[2023-05-12] MEDS ORDERED: Nystatin Topical Powder 15 GM Bottle TOP PRN (08:51)
[2023-05-12] MEDS: Metoprolol Succinate 25 MG Tab.ER PO SCH ×2 (09:16→20:42)
[2023-05-12] MEDS: busPIRone 15 MG Tab PO SCH ×2 (09:17→20:33)
[2023-05-12] MEDS: Mirabegron 25 MG Tab Extended Release PO SCH (09:17)
[2023-05-12] MEDS: Iron Polysaccharides Complex 150 MG Cap PO SCH (09:17)
[2023-05-12] MEDS: Furosemide 20 MG Tab PO SCH (09:17)
[2023-05-12] MEDS: Vitamin B Complex with Vitamin C Tab PO SCH (09:17)
[2023-05-12] MEDS: Magnesium Chloride 64 MG Tab.ER PO SCH (09:17)
[2023-05-12] MEDS: Diltiazem 180 MG Cap.CD PO SCH (09:17)
[2023-05-12] MEDS: Multivitamin Tab PO SCH (09:18)
[2023-05-12] MEDS: Lisinopril 2.5 MG Tab PO SCH (09:18)
[2023-05-12] MEDS: Acetaminophen 500 MG Tab PO SCH ×2 (09:18→15:04)
[2023-05-12] MEDS: Carboxymethylcellulose Sodium 0.5% Ophth Soln 15 ML Bottle EYEBOTH SCH ×2 (09:19→20:42)
[2023-05-12] MEDS: Ketotifen 0.025% Ophth Soln 5 ML Bottle EYEBOTH SCH ×2 (09:19→20:35)
[2023-05-12] MEDS: Menthol/Zinc Oxide Ointment 113 GM Tube TOP SCH ×2 (09:21→20:34)
[2023-05-12] MEDS: Cranberry 500 MG Cap PO SCH (09:21)
[2023-05-12] MEDS: Pantoprazole 40 MG Vial IVPUSH SCH (09:22)
[2023-05-12 17:46] LABS: HEMATOCRIT 26.6 % (34.2-48.2); HEMOGLOBIN 9.7 g/dL (11.4-15.5)
[2023-05-12] MEDS: Pravastatin 20 MG Tab PO SCH (20:35)
[2023-05-12] MEDS: Gabapentin 300 MG Cap PO SCH (20:35)
[2023-05-12] MEDS: Melatonin 3 MG Tab PO SCH (20:35)
[2023-05-12] MEDS: lamoTRIgine 100 MG Tab PO SCH (20:35)
[2023-05-12] MEDS: Acetaminophen/Codeine 300-30 MG Tab PO SCH (20:37)
[2023-05-13] MEDS: Levothyroxine 50 MCG Tab PO SCH (06:05)
[2023-05-13] MEDS: Sucralfate 1 GM Tab PO SCH ×4 (06:45→21:13)
[2023-05-13 06:50] LABS: BASOPHILS ABSOLUTE AUTO 0.1 x10-3/uL (0.0-0.1); BASOPHILS PERCENT AUTO 0.5 % (0.2-1.5); EOSINOPHILS ABSOLUTE AUTO 0.1 x10-3/uL (0.0-0.8); EOSINOPHILS PERCENT AUTO 1.4 % (0.6-8.1); HEMATOCRIT 26.6 % (34.2-48.2); HEMOGLOBIN 9.1 g/dL (11.4-15.5); LYMPHOCYTES ABSOLUTE AUTO 1.2 x10-3/uL (1.0-4.4); LYMPHOCYTES PERCENT AUTO 11.9 % (18.4-52.1); MEAN CORPUSCULAR HEMOGLOBIN 32.6 pg (23.9-33.9); MEAN CORPUSCULAR VOLUME 95.7 fL (76.7-100.5); MEAN PLATELET VOLUME 7.5 fL (7.1-12.4); MONOCYTES ABSOLUTE AUTO 0.6 x10-3/uL (0.3-1.0); MONOCYTES PERCENT AUTO 5.3 % (4.4-15.7); NEUTROPHILS ABSOLUTE AUTO 8.5 x10-3/uL (1.5-6.3); NEUTROPHILS PERCENT AUTO 80.9 % (30.8-76.2); PLATELET COUNT,PLT 249 x10(3)uL (151-488); RED BLOOD CELL COUNT 2.78 x10(6)uL (3.60-5.20); RED CELL DISTRIBUTION WIDTH 16.2 % (12.3-16.5); WHITE BLOOD CELL COUNT,WBC 10.5 x10-3/uL (3.0-10.3)
[2023-05-13] MEDS: Insulin Lispro 100 Unit/ML 3 ML KwikPen SUBCUT SCH ×3 (08:17→17:29)
[2023-05-13] MEDS: metFORMIN 500 MG Tab PO SCH ×2 (08:18→17:29)
[2023-05-13] MEDS: busPIRone 15 MG Tab PO SCH ×2 (08:25→21:12)
[2023-05-13] MEDS: Menthol/Zinc Oxide Ointment 113 GM Tube TOP SCH ×2 (08:26→21:13)
[2023-05-13] MEDS: Iron Polysaccharides Complex 150 MG Cap PO SCH (08:28)
[2023-05-13] MEDS: Cranberry 500 MG Cap PO SCH (08:28)
[2023-05-13] MEDS: Diltiazem 180 MG Cap.CD PO SCH (08:28)
[2023-05-13] MEDS: Magnesium Chloride 64 MG Tab.ER PO SCH (08:29)
[2023-05-13] MEDS: Ketotifen 0.025% Ophth Soln 5 ML Bottle EYEBOTH SCH ×2 (08:29→21:14)
[2023-05-13] MEDS: Mirabegron 25 MG Tab Extended Release PO SCH (08:29)
[2023-05-13] MEDS: Lisinopril 2.5 MG Tab PO SCH (08:30)
[2023-05-13] MEDS: Multivitamin Tab PO SCH (08:31)
[2023-05-13] MEDS: Pantoprazole 40 MG Vial IVPUSH SCH (08:31)
[2023-05-13] MEDS: Carboxymethylcellulose Sodium 0.5% Ophth Soln 15 ML Bottle EYEBOTH SCH ×2 (08:31→21:15)
[2023-05-13] MEDS: Vitamin B Complex with Vitamin C Tab PO SCH (08:32)
[2023-05-13] MEDS: Metoprolol Succinate 25 MG Tab.ER PO SCH ×2 (08:32→21:15)
[2023-05-13] MEDS: Acetaminophen/Codeine 300-30 MG Tab PO SCH ×3 (08:33→18:20)
[2023-05-13 16:20] LABS: HEMATOCRIT 26.2 % (34.2-48.2); HEMOGLOBIN 8.8 g/dL (11.4-15.5)
[2023-05-13] MEDS ORDERED: Acetaminophen/Codeine 300-30 MG Tab PO PRN (19:46)
[2023-05-13] MEDS: Gabapentin 300 MG Cap PO SCH (21:14)
[2023-05-13] MEDS: Melatonin 3 MG Tab PO SCH (21:14)
[2023-05-13] MEDS: lamoTRIgine 100 MG Tab PO SCH (21:14)
[2023-05-13] MEDS: Pravastatin 20 MG Tab PO SCH (21:14)
[2023-05-14] MEDS: Levothyroxine 50 MCG Tab PO SCH (05:54)
[2023-05-14] MEDS ORDERED: Pantoprazole 40 MG Tab.CR PO SCH (06:00)
[2023-05-14 06:39] LABS: HEMATOCRIT 25.8 % (34.2-48.2); HEMOGLOBIN 8.7 g/dL (11.4-15.5)
[2023-05-14] MEDS: Sucralfate 1 GM Tab PO SCH (06:45)
[2023-05-14] MEDS: Insulin Lispro 100 Unit/ML 3 ML KwikPen SUBCUT SCH (07:47)
[2023-05-14] MEDS: Metoprolol Succinate 25 MG Tab.ER PO SCH (08:39)
[2023-05-14] MEDS: Vitamin B Complex with Vitamin C Tab PO SCH (08:39)
[2023-05-14] MEDS: Lisinopril 2.5 MG Tab PO SCH (08:40)
[2023-05-14] MEDS: Furosemide 20 MG Tab PO SCH (08:40)
[2023-05-14] MEDS: Multivitamin Tab PO SCH (08:40)
[2023-05-14] MEDS: Mirabegron 25 MG Tab Extended Release PO SCH (08:40)
[2023-05-14] MEDS: Magnesium Chloride 64 MG Tab.ER PO SCH (08:40)
[2023-05-14] MEDS: Carboxymethylcellulose Sodium 0.5% Ophth Soln 15 ML Bottle EYEBOTH SCH (08:40)
[2023-05-14] MEDS: busPIRone 15 MG Tab PO SCH (08:41)
[2023-05-14] MEDS: Ketotifen 0.025% Ophth Soln 5 ML Bottle EYEBOTH SCH (08:41)
[2023-05-14] MEDS: Iron Polysaccharides Complex 150 MG Cap PO SCH (08:41)
[2023-05-14] MEDS: metFORMIN 500 MG Tab PO SCH (08:41)
[2023-05-14] MEDS: Diltiazem 180 MG Cap.CD PO SCH (08:41)
[2023-05-14] MEDS: Cranberry 500 MG Cap PO SCH (08:41)
[2023-05-14] MEDS: Menthol/Zinc Oxide Ointment 113 GM Tube TOP SCH (08:42)
[2023-05-14 10:48] VITALS: BP 113/57; PULSE 70
== END 2023-05-14 11:10 | DRG 178 ==
LOC: FB.ED 04:23 → FB.MS 09:13
PROVIDERS: ADMIT Family Medicine; ATTEND Family Medicine
PROC: 8E0ZXY6 Isolation (ICD-10-PCS; 2023-05-07)
PROC: 30233K1 Transfusion of Nonautologous Frozen Plasma into Peripheral Vein, Percutaneous Approach (ICD-10-PCS; principal; 2023-05-10)
PROC: 30233N1 Transfusion of Nonautologous Red Blood Cells into Peripheral Vein, Percutaneous Approach (ICD-10-PCS; 2023-05-10)
PROC: 30233N1 Transfusion of Nonautologous Red Blood Cells into Peripheral Vein, Percutaneous Approach (ICD-10-PCS; 2023-05-11)
PROC: 30233K1 Transfusion of Nonautologous Frozen Plasma into Peripheral Vein, Percutaneous Approach (ICD-10-PCS; 2023-05-11)
DX: U07.1 COVID-19 (principal); K92.2 Gastrointestinal hemorrhage, unspecified; I11.0 Hypertensive heart disease with heart failure; I50.9 Heart failure, unspecified; E78.00 Pure hypercholesterolemia, unspecified; E11.40 Type 2 diabetes mellitus with diabetic neuropathy, unspecified; E03.9 Hypothyroidism, unspecified; E66.9 Obesity, unspecified; Z68.41 Body mass index [BMI] 40.0-44.9, adult; N17.9 Acute kidney failure, unspecified; Z91.048 Other nonmedicinal substance allergy status; Z79.84 Long term (current) use of oral hypoglycemic drugs; N39.0 Urinary tract infection, site not specified; I10 Essential (primary) hypertension; R53.1 Weakness; F32.9 Major depressive disorder, single episode, unspecified; I48.91 Unspecified atrial fibrillation; Z86.14 Personal history of Methicillin resistant Staphylococcus aureus infection; R26.2 Difficulty in walking, not elsewhere classified; Z79.01 Long term (current) use of anticoagulants; R82.71 Bacteriuria; N28.9 Disorder of kidney and ureter, unspecified; E11.22 Type 2 diabetes mellitus with diabetic chronic kidney disease; I12.9 Hypertensive chronic kidney disease with stage 1 through stage 4 chronic kidney disease, or unspecified chronic kidney disease; N18.32 Chronic kidney disease, stage 3b; B96.20 Unspecified Escherichia coli [E. coli] as the cause of diseases classified elsewhere; R79.1 Abnormal coagulation profile; R11.2 Nausea with vomiting, unspecified; Z51.5 Encounter for palliative care; R00.0 Tachycardia, unspecified; I95.9 Hypotension, unspecified
CPT/HCPCS: 36415; 36430; 71046; 80048; 80053; 81001; 82271; 82947; 83605; 85014; 85018; 85025; 85610; 86850; 86900; 86901; 86920; 86922; 87086; 87088; 87186; 93005; 93010; 97110-GO; 97110-GP; 97161-GP; 97165-GO; 97542-GO; 99222; 99232; 99238; 99283; 99285; A9270-GY; C9113; J1815; J3430; J3490; J7030; J7050; P9016; P9017; Q0162

== ENCOUNTER 2023-05-19 07:03 | Day surgery (SDC) | payer MEDICARE ==
[~2023-05-19 07:03] MED LIST: Lactated Ringers 1,000 ML IV SCH; Sodium Chloride 0.9% 10 ML Syringe FLUSH PRN
[2023-05-19] MEDS ORDERED: Propofol 200 MG/20 ML SDV IV ONE (07:04)
[2023-05-19 09:50] VITALS: BP 153/69; PULSE 73
== END 2023-05-19 10:05 | disposition home or self-care (01) ==
LOC: FB.SDS 07:03
PROVIDERS: ATTEND Surgery
DX: T18.2XXA Foreign body in stomach, initial encounter (principal); K44.9 Diaphragmatic hernia without obstruction or gangrene; E11.9 Type 2 diabetes mellitus without complications; N39.0 Urinary tract infection, site not specified; I48.91 Unspecified atrial fibrillation; F32.9 Major depressive disorder, single episode, unspecified; N28.9 Disorder of kidney and ureter, unspecified; N18.30 Chronic kidney disease, stage 3 unspecified; K92.2 Gastrointestinal hemorrhage, unspecified; Z79.85 Long-term (current) use of injectable non-insulin antidiabetic drugs; Z86.16 Personal history of COVID-19; Z79.01 Long term (current) use of anticoagulants; Z79.899 Other long term (current) drug therapy; W44.F3XA Food entering into or through a natural orifice, initial encounter
CPT/HCPCS: 00731; 43235; 82947; 99100; J2704; J7120

== ENCOUNTER 2024-10-20 11:53 | Emergency (ER) | payer MEDICARE ==
[2024-10-20 12:39] LABS: BASOPHILS PERCENT AUTO 0.3 % (0.2-1.5); EOSINOPHILS PERCENT AUTO 0.5 % (0.6-8.1); HEMATOCRIT 25.9 % (34.2-48.2); HEMOGLOBIN 8.7 g/dL (11.4-15.5); LYMPHOCYTES ABSOLUTE AUTO 0.8 x10-3/uL (1.0-4.4); LYMPHOCYTES PERCENT AUTO 9.1 % (18.4-52.1); MEAN CORPUSCULAR HEMOGLOBIN 30.3 pg (23.9-33.9); MEAN CORPUSCULAR HGB CONC 33.6 g/dL (31.9-34.8); MEAN CORPUSCULAR VOLUME 90.1 fL (76.7-100.5); MEAN PLATELET VOLUME 7.1 fL (7.1-12.4); MONOCYTES ABSOLUTE AUTO 0.8 x10-3/uL (0.3-1.0); MONOCYTES PERCENT AUTO 8.2 % (4.4-15.7); NEUTROPHILS ABSOLUTE AUTO 7.6 x10-3/uL (1.5-6.3); NEUTROPHILS PERCENT AUTO 81.9 % (30.8-76.2); PLATELET COUNT,PLT 305 x10(3)uL (151-488); RED BLOOD CELL COUNT 2.88 x10(6)uL (3.60-5.20); RED CELL DISTRIBUTION WIDTH 14.3 % (12.3-16.5); WHITE BLOOD CELL COUNT,WBC 9.3 x10-3/uL (3.0-10.3)
[2024-10-20 12:49] LABS: A/G RATIO 0.9; ALANINE AMINOTRANSFERASE,ALT 10 U/L (12-36); ALBUMIN 3.2 g/dL (3.2-4.6); ALKALINE PHOSPHATASE 114 IU/L (56-112); ASPARTATE AMNIOTRANSFERASE,AST 19 IU/L (5-25); BILIRUBIN TOTAL 0.2 mg/dL (0.1-1.3); BLOOD UREA NITROGEN,BUN 67 mg/dL (7-18); CALCIUM 9.5 mg/dL (8.6-10.2); CARBON DIOXIDE,CO2 37 mmol/L (21-32); CREATININE 1.5 mg/dL (0.55-1.02); EST CRCL DRUG DOSING (CG) 29.09 mL/min; ESTIMATED GFR 35 mL/min (>60); GLUCOSE RANDOM 192 mg/dL (80-116); POTASSIUM,K 3.9 mmol/L (3.5-5.3); PROTEIN TOTAL,TP 6.8 g/dL (6.0-8.0); SODIUM,NA 126 mmol/L (135-145)
[2024-10-20 12:51] LABS: BUN/CREATININE RATIO 44.7 (9-20); CHLORIDE,CL 87 mmol/L (100-110)
[2024-10-20 13:07] LABS: BILIRUBIN,URINE NEGATIVE (NEGATIVE); GLUCOSE,URINE NORMAL (NORMAL); KETONES,URINE NEGATIVE (NEGATIVE); LEUKOCYTE ESTERASE,URINE LARGE (NEGATIVE); NITRITE,URINE NEGATIVE (NEGATIVE); OCCULT BLOOD,URINE LARGE (NEGATIVE); PROTEIN,URINE 30 mg/dL (NEGATIVE); UROBILINOGEN,URINE NORMAL (NEGATIVE)
[2024-10-20 13:09] LABS: APPEARANCE,URINE CLOUDY (CLEAR); COLOR,URINE YELLOW (YELLOW)
[2024-10-20] MEDS: Sodium Chloride 0.9% 1,000 ML IV ONE (13:14)
[2024-10-20 13:28] LABS: BACTERIA,URINE MANY (NS); RBC,URINE PACKED (0-5); SQUAMOUS EPITHELIAL CELLS,UR FEW (NS,R,O); WBC,URINE PACKED (0-5)
[2024-10-20 13:30] VITALS: PULSE 59
[2024-10-20] MEDS: cefTRIAXone 1 GM Vial IVPUSH SCH (13:52)
[2024-10-20 14:09] VITALS: BP 122/57
== END 2024-10-20 14:35 ==
LOC: FB.ED 11:53
DX: R55 Syncope and collapse (principal); E87.1 Hypo-osmolality and hyponatremia; N30.00 Acute cystitis without hematuria; I48.91 Unspecified atrial fibrillation; I11.0 Hypertensive heart disease with heart failure; I50.9 Heart failure, unspecified; E11.9 Type 2 diabetes mellitus without complications; E03.9 Hypothyroidism, unspecified; Z91.048 Other nonmedicinal substance allergy status; Z79.890 Hormone replacement therapy; Z79.84 Long term (current) use of oral hypoglycemic drugs; Z79.01 Long term (current) use of anticoagulants
CPT/HCPCS: 36415; 70450; 73502-RT; 80053; 81001; 84484; 85025; 87086; 87088; 87186; 93005; 96361; 96374; 99284-25; J0696; J7030